=== PATIENT | male | born 1935 | race Caucasian/White ===

== ENCOUNTER 2017-12-20 13:47 | Inpatient (IN) | payer OTHER, BC, MEDICARE ==
[~2017-12-20] VITALS: Ht 167.6 cm; Wt 65.9 kg
--- NOTE | 2017-12-20 14:20 | ED MVC/FALL/TRAUMA COMPLAINT ---
History of Present Illness General Chief Complaint: General Adult Stated Complaint: ?STROKE Source: patient, DAUGHTER Exam Limitations: poor historian Vital Signs & Intake/Output Vital Signs & Intake/Output Vital Signs Date Time Temp Pulse Resp B/P B/P Pulse O2 O2 Flow FiO2 Mean Ox Delivery Rate 12/20 1411 98.0 102 20 188/104 96 Room Air Allergies Coded Allergies: NO KNOWN ALLERGIES (02/08/13) Reconcile Medications Amlodipine Besylate 5 MG TABLET 1 TAB PO DAILY BP (Reported) Atorvastatin Calcium 10 MG TABLET 1 TAB PO DAILY CHOLESTEROL (Reported) Tamsulosin HCl (Flomax) 0.4 MG CAP.ER.24H 1 CAP PO DAILY (Reported) Triage Nurses Notes Reviewed? yes HPI: Patient presents for evaluation of injury sustained status post fall on the possibility of a stroke. Patient was brought to the emergency department by paramedics who placed patient in a cervical collar. According to the patient he got up at about 8:00 this morning and noted he was having trouble walking. He states he fell repeatedly during the morning. He was found by one of his daughters this afternoon. The patient is complaining of left forearm pain secondary to an abrasion. Past History Travel History Traveled to [place] past 21 day No Medical History Any Pertinent Medical History? see below for history Cardiovascular: hypertension, hyperlipidemia Surgical History Surgical History: non-contributory Psychosocial History Who do you live with Spouse Services at Home None What is your primary language Haitian Tobacco Use: Never used ETOH Use: denies use Illicit Drug Use: denies illicit drug use Family History Hx Contributory? No Review of Systems Review of Systems Constitutional: Reports: no symptoms. Eyes: Reports: no symptoms. Ears, Nose, Throat, Mouth: Reports: no symptoms. Respiratory: Reports: no symptoms. Cardiovascular: Reports: no symptoms. Gastrointestinal/Abdominal: Reports: no symptoms. Genitourinary: Reports: no symptoms. Musculoskeletal: Reports: see HPI. Skin: Reports: no symptoms. Neurological/Psychological: Reports: no symptoms. All Other Systems: Reviewed and Negative Physical Exam Physical Exam General Appearance: SEE BELOW Core Measures ACS in differential dx? No CVA/TIA Diagnosis Yes NIH Stroke Scale (24 Hours) NIH Stroke Scale (24 Hours) Response Value Level of Consciousness alert 0 LOC Questions answers both correctly 0 LOC Commands obeys both correctly 0 Best Gaze partial gaze palsy 1 Visual Matt partial hemianopia 1 Facial Paresis normal 0 Motor Arm - Left no drift 0 Motor Arm - Right no drift 0 Motor Leg - Left no drift 0 Motor Leg - Right no drift 0 Limb Ataxia no ataxia 0 Sensory normal 0 Best Language no aphasia 0 Dysarthria mild/mod slurring words 1 Extinction and Inattention partial neglect 1 Total 4 Swallow Evaluation Pass Swallow eval date 12/20/17 Swallow eval time 1720 Sepsis Present: No Sepsis Focused Exam Completed? No Progress Differential Diagnosis: TIA, CVA, mass, bleed, dehydration, anemia, electrolyte abnormality, occult infection Plan of Care: Orders Procedure Date/time Status URINALYSIS 12/20 142 Complete TSH REFLEX 12/20 142 Complete TROPONIN LEVEL 12/20 142 Complete MAGNESIUM 12/20 1424 Complete CBC WITHOUT DIFFERENTIAL 12/20 1424 Complete BASIC METABOLIC PANEL 12/20 1424 Complete EKG 12/20 1424 Active Current Medications Sig/Alfredito Start time Last Medication Dose Stop Time Status Admin Aspirin 81 MG ONCE ONE 12/21 1999 UNVr (Aspirin) 12/20 2000 Guaifenesin 600 MG ONCE ONE 12/20 170 CAN (Mucinex) 12/20 1701 Laboratory Tests 12/20/17 1735: Urine Color YEL, Urine Clarity CLDY H, Urine pH 6.0, Ur Specific Jasper 1.020, Urine Protein TRACE H, Urine Ketones NEG, Urine Nitrite NEG, Urine Bilirubin NEG, Urine Urobilinogen 0.2, Ur Leukocyte Esterase LARGE H, Ur Microscopic SEDIMENT EXAMINED, Urine RBC 5-10 H, Urine WBC > 75 H, Urine Bacteria MANY H, Urine Hemoglobin LARGE H, Urine Glucose NEG 12/20/17 1430: Anion Gap 12, Estimated GFR 34 L, BUN/Creatinine Ratio 17.4, Glucose 93, Calcium 9.1, Magnesium 2.0, Troponin I < 0.01, TSH &T3 &Free T4 Intrp 3.690, CBC w Diff MAN DIFF ORDERED, RBC 5.68, MCV 78.6 L, MCH 25.5 L, MCHC 32.4 L, RDW 16.7 H, MPV 8.4, Gran % 86.8 H, Lymphocytes % 5.7 L, Monocytes % 7.2, Eosinophils % 0.1, Basophils % 0.2, Absolute Granulocytes 10.6 H, Absolute Lymphocytes 0.7 L, Absolute Monocytes 0.9 H, Absolute Eosinophils 0, Absolute Basophils 0, Platelet Estimate VERIFIED BY SMEAR, Hypochromic-Microcytic 1+, Anisocytosis 1+, Microcytic Cells 1+ Radiology Impression: PATIENT: JONATAN DAN PRESENT AGE: 82 PATIENT ACCOUNT NO: [id number] : 35 LOCATION: [facility] ([facility]) ORDERING PHYSICIAN: Benny Ledesma MD SERVICE DATE: 12/20/17-7048 EXAM TYPE : CAT - CT CERV SPINE WO IV CONTRAST EXAMINATION: CT CERVICAL SPINE WITHOUT CONTRAST CLINICAL INFORMATION: Change of mental status COMPARISON: None TECHNIQUE: Contiguous helical images of the cervical spine were obtained without IV contrast. Multiplanar reconstructions were performed. DLP: 312 mGy-cm FINDINGS: There is no convincing prevertebral soft tissue swelling. There are extensive and severe degenerative changes involving the cervical spine. There is diffuse sclerosis throughout the body of C2. The relationship between the lateral masses of C1 and the odontoid process of C2 are maintained. There is 1 mm of retrolisthesis at the C3-C4 level. There is relative preservation of the normal intervertebral disc space of C2-C3, C3-C4, and C4-C5. There is complete narrowing of the intervertebral disc space at C5-C6 and C6/C7 with vertebral body bony fusion suspected at these levels. There are prominent bridging anterior osteophytes as well. Smaller posterior osteophytes are noted from C5 through C7. There is extensive facet hypertrophy as well. This is present throughout the visualized cervical spine. No acute fracture is identified. There is no convincing acute subluxation. The thyroid gland appears within normal limits. The lung apices are clear.. IMPRESSION: 1. No acute fracture or significant subluxation involving the cervical spine. Severe degenerative changes from C5 through C7 including bony fusion. 2. Minimal retrolisthesis present at the C3-C4 level most likely relates to extensive degenerative changes noted more inferiorly within the cervical spine. However, if there is pain referrable to this level consider further evaluation with MRI to definitively exclude injury to the cervical spine. DICTATED BY: Callie Rice MD DATE/TIME DICTATED:12/20/171431 [employer] PLANT MANAGER:KERVIN DATE/TIME TRANSCRIBED:1431 CONFIDENTIAL, DO NOT COPY WITHOUT APPROPRIATE AUTHORIZATION. < Electronically signed in Other Vendor System> SIGNED BY: Callie Rice MD 1443, PATIENT: JONATAN DAN PRESENT AGE: 82 PATIENT ACCOUNT NO: [id number] : 35 LOCATION: [facility] ([facility]) ORDERING PHYSICIAN: Benny Ledesma MD SERVICE DATE: 12/20/17 EXAM TYPE: CAT - CT HEAD WO IV CONTRAST EXAMINATION: CT HEAD WITHOUT CONTRAST CLINICAL INFORMATION: Change in mental status COMPARISON: 02/08/2013 TECHNIQUE: Contiguous axial imaging was performed from the skull base to vertex without intravenous administration of contrast. DLP: 625 mGy-cm FINDINGS: There is no evidence of acute intracranial hemorrhage or territorial infarction. No abnormal mass effect or midline shift is seen. Gomes to white matter differentiation is well preserved. No extra-axial fluid collections are identified. The ventricles are mildly increased in size. There is extensive low-attenuation within the periventricular and subcortical white matter. This is increased compared 2013. Additional, there is a new hypodensity within the left basal ganglia measuring 6 mm consistent with a lacunar infarct. A similar finding is noted adjacent to the left lateral ventricle measuring 8 mm in size. There is a geographic hypoattenuation surrounding the latter finding. However, there is no effacement of the sulci. A tiny hypodensity is also noted within the left thalamus measuring 0.4 cm in size. In addition, there is a tiny hypodensity within the right frontal lobe anterior to the lateral ventricle. Additional tiny hypodensity measuring 0.6 cm in size is identified within the right occipital lobe. The osseous structures and soft tissues are normal. The mastoid air cells and visualized portions of the paranasal sinuses are well aerated. IMPRESSION: 1. No acute intracranial hemorrhage. 2. Multiple new (compared to 2012) scattered rounded subcentimeter areas of hypoattenuation. While a few of these findings are most likely consistent with lacunar infarcts, additional areas are less classic in distribution raising the possibility of possible underlying metastatic disease. Consider further evaluation with MRI to definitively characterize these findings. 3. Moderate to severe chronic small vessel ischemic change. DICTATED BY: Callie Rice MD DATE/TIME DICTATED:12/20/171447 [employer]ANT MANAGER:KERVIN DATE/TIME TRANSCRIBED:12/20/171447 CONFIDENTIAL, DO NOT COPY WITHOUT APPROPRIATE AUTHORIZATION. <Electronically signed in Other Vendor System> SIGNED BY: Callie Rice MD 12/20/17 5848, PATIENT: JONATAN DAN PRESENT AGE: 82 PATIENT ACCOUNT NO: [id number] : 35 LOCATION: [facility] ([facility]) ORDERING PHYSICIAN: Benny Ledesma MD SERVICE DATE: 12/20/171424 EXAM TYPE: RAD - XRY-HUMERUS, LEFT EXAMINATION: XR HUMERUS, LEFT CLINICAL INFORMATION: Pain status-post fall. COMPARISON: Left elbow radiographs dated 08/2012. TECHNIQUE: AP and lateral views of the left humerus. FINDINGS: Bony alignment and mineralization are normal. There is marked osteophytic change of the left shoulder, with narrowed rotator cuff interval. No acute fracture or dislocation is seen. There is a chronic soft tissue calcification seen in the anterior lower upper arm, unchanged from 02/08/2013. No new radiopaque foreign body is seen. IMPRESSION: 1. No acute fracture or dislocation is seen. 2. There is marked osteophytic change of the left shoulder, with findings suggesting rotator cuff impingement and tendinopathy. DICTATED BY: Lobo Hong MD DATE/ TIME DICTATED:12/20/171539 [employer]ANT MANAGER:KERVIN DATE/TIME TRANSCRIBED: 12/20/171539 CONFIDENTIAL, DO NOT COPY WITHOUT APPROPRIATE AUTHORIZATION. < Electronically signed in Other Vendor System> SIGNED BY: Lobo Hong MD 12/20/17 1546, PATIENT: JONATAN DAN PRESENT AGE: 82 PATIENT ACCOUNT NO: [id number] : 35 LOCATION: [facility] ([facility]) ORDERING PHYSICIAN: Benny Ledesma MD SERVICE DATE: 12/20/17 EXAM TYPE: RAD - XRY-FOREARM, LEFT EXAMINATION: XR FOREARM, LEFT CLINICAL INFORMATION: Pain status-post fall. COMPARISON: Left elbow radiographs dated 02/08/2013. TECHNIQUE: AP and lateral views of the left forearm were obtained. FINDINGS: Bony alignment and mineralization are normal. No fracture, dislocation or joint effusion is seen. There is an enthesophyte is seen arising from the olecranon process. There is a soft tissue calcifications seen within the dorsal forearm, which appears to have been present on the frontal view of the left elbow dated 02/08/2013. No new radiopaque foreign body is seen. IMPRESSION: No acute fracture, dislocation or joint effusion is seen DICTATED BY: Lobo Hong MD DATE/TIME DICTATED:12/20/171536 [employer]ANT MANAGER:KERVIN DATE/TIME TRANSCRIBED:12/20/171536 CONFIDENTIAL, DO NOT COPY WITHOUT APPROPRIATE AUTHORIZATION. <Electronically signed in Other Vendor System> SIGNED BY: Lobo Hong MD 12/20/17 1544 Departure Departure Disposition: STILL A PATIENT Condition: Stable Clinical Impression Primary Impression: CVA (cerebral vascular accident) Qualifiers: CVA mechanism: unspecified Qualified Code: I63.9 - Cerebral infarction, unspecified Secondary Impressions: UTI (urinary tract infection) Qualifiers: Urinary tract infection type: site unspecified Hematuria presence: without hematuria Qualified Code: N39.0 - Urinary tract infection, site not specified Referrals: Mckenzie YBARRA,Mark Elaine (PCP/Family) Departure Forms: Customer Survey General Discharge Information Admission Note Spoke With: Bernabe Zhou MD Documentation of Exam: Documentation of any treatments & extenuating circumstances including Concerns Regarding Discharge (functional status, medication knowledge or non-compliance, living conditions, etc.) that warrant an admission rather than observation: Patient has experienced a number of falls this morning likely secondary to a left parietal lacunar infarct noted on CAT scan. The patient is a very poor candidate for outpatient management given his frequent falling and is CVA resulting in left-sided weakness. He would be at great risk of falling with subsequent injury and would likely return in worse clinical condition. I feel he now requires hospitalization for initiation of antiplatelet therapy, follow- up MRI scan, neurology consultation and physical therapy evaluation. In addition, echocardiogram should be considered to rule out cardioembolic disease. Given his advanced age and medical comorbidities I suspect his treatment and recovery will be prolonged, requiring short-term rehabilitation. He will require a multiple day hospitalization.
--- NOTE | 2017-12-20 14:43 | CT SCAN REPORT ---
EXAMINATION: CT CERVICAL SPINE WITHOUT CONTRAST CLINICAL INFORMATION: Change of mental status COMPARISON: None TECHNIQUE: Contiguous helical images of the cervical spine were obtained without IV contrast. Multiplanar reconstructions were performed. DLP: 312 mGy-cm FINDINGS: There is no convincing prevertebral soft tissue swelling. There are extensive and severe degenerative changes involving the cervical spine. There is diffuse sclerosis throughout the body of C2. The relationship between the lateral masses of C1 and the odontoid process of C2 are maintained. There is 1 mm of retrolisthesis at the C3-C4 level. There is relative preservation of the normal intervertebral disc space of C2-C3, C3-C4, and C4-C5. There is complete narrowing of the intervertebral disc space at C5-C6 and C6/C7 with vertebral body bony fusion suspected at these levels. There are prominent bridging anterior osteophytes as well. Smaller posterior osteophytes are noted from C5 through C7. There is extensive facet hypertrophy as well. This is present throughout the visualized cervical spine. No acute fracture is identified. There is no convincing acute subluxation. The thyroid gland appears within normal limits. The lung apices are clear.. IMPRESSION: 1. No acute fracture or significant subluxation involving the cervical spine. Severe degenerative changes from C5 through C7 including bony fusion. 2. Minimal retrolisthesis present at the C3-C4 level most likely relates to extensive degenerative changes noted more inferiorly within the cervical spine. However, if there is pain referrable to this level consider further evaluation with MRI to definitively exclude injury to the cervical spine.
--- NOTE | 2017-12-20 15:01 | CT SCAN REPORT ---
EXAMINATION: CT HEAD WITHOUT CONTRAST CLINICAL INFORMATION: Change in mental status COMPARISON: 02/08/2013 TECHNIQUE: Contiguous axial imaging was performed from the skull base to vertex without intravenous administration of contrast. DLP: 625 mGy-cm FINDINGS: There is no evidence of acute intracranial hemorrhage or territorial infarction. No abnormal mass effect or midline shift is seen. Gomes to white matter differentiation is well preserved. No extra-axial fluid collections are identified. The ventricles are mildly increased in size. There is extensive low-attenuation within the periventricular and subcortical white matter. This is increased compared 2013. Additional, there is a new hypodensity within the left basal ganglia measuring 6 mm consistent with a lacunar infarct. A similar finding is noted adjacent to the left lateral ventricle measuring 8 mm in size. There is a geographic hypoattenuation surrounding the latter finding. However, there is no effacement of the sulci. A tiny hypodensity is also noted within the left thalamus measuring 0.4 cm in size. In addition, there is a tiny hypodensity within the right frontal lobe anterior to the lateral ventricle. Additional tiny hypodensity measuring 0.6 cm in size is identified within the right occipital lobe. The osseous structures and soft tissues are normal. The mastoid air cells and visualized portions of the paranasal sinuses are well aerated. IMPRESSION: 1. No acute intracranial hemorrhage. 2. Multiple new (compared to 2013) scattered rounded subcentimeter areas of hypoattenuation. While a few of these findings are most likely consistent with lacunar infarcts, additional areas are less classic in distribution raising the possibility of possible underlying metastatic disease. Consider further evaluation with MRI to definitively characterize these findings. 3. Moderate to severe chronic small vessel ischemic change.
[2017-12-20 15:03] LABS: ABSOLUTE BASOPHIL COUNT 0 /CUMM (0.0-0.2); ABSOLUTE EOSINOPHIL COUNT 0 /CUMM (0.0-0.7); ABSOLUTE GRANULOCYTE CT 10.6 /CUMM (1.4-6.5); ABSOLUTE LYMPH COUNT 0.7 /CUMM (1.2-3.4); ABSOLUTE MONOCYTE COUNT 0.9 /CUMM (0.10-0.60); BASOPHIL % 0.2 % (0.0-2.0); EOSINOPHIL % 0.1 % (0-5); GRANULOCYTE % 86.8 % (42.2-75.2); HEMATOCRIT 44.6 % (42-52); MEAN CORPUSCULAR HGB 25.5 PG (27.0-31.0); MEAN CORPUSCULAR HGB CONC 32.4 G/DL (33.0-37.0); MEAN CORPUSCULAR VOLUME 78.6 FL (80.0-94.0); MEAN PLATELET VOLUME 8.4 FL (7.4-10.4); PLATELET COUNT 242 /CUMM (130-400); RBC DISTRIBUTION WIDTH 16.7 % (11.5-14.5); RED BLOOD CELL CT 5.68 /CUMM (4.70-6.10); WHITE BLOOD CELL COUNT 12.2 /CUMM (4.8-10.8)
[2017-12-20] MEDS ORDERED: ATORVASTATIN CA10 M1 PO (15:32)
[2017-12-20] MEDS ORDERED: FLOMAX0.4 M1 PO (15:32)
[2017-12-20] MEDS ORDERED: AMLODIPINE BESYL5 M1 PO (15:33)
--- NOTE | 2017-12-20 15:44 | RADIOLOGY REPORT ---
EXAMINATION: XR FOREARM, LEFT CLINICAL INFORMATION: Pain status-post fall. COMPARISON: Left elbow radiographs dated 02/08/2013. TECHNIQUE: AP and lateral views of the left forearm were obtained. FINDINGS: Bony alignment and mineralization are normal. No fracture, dislocation or joint effusion is seen. There is an enthesophyte is seen arising from the olecranon process. There is a soft tissue calcifications seen within the dorsal forearm, which appears to have been present on the frontal view of the left elbow dated 02/08/2013. No new radiopaque foreign body is seen. IMPRESSION: No acute fracture, dislocation or joint effusion is seen
--- NOTE | 2017-12-20 15:46 | RADIOLOGY REPORT ---
EXAMINATION: XR HUMERUS, LEFT CLINICAL INFORMATION: Pain status-post fall. COMPARISON: Left elbow radiographs dated 02/08/2013. TECHNIQUE: AP and lateral views of the left humerus. FINDINGS: Bony alignment and mineralization are normal. There is marked osteophytic change of the left shoulder, with narrowed rotator cuff interval. No acute fracture or dislocation is seen. There is a chronic soft tissue calcification seen in the anterior lower upper arm, unchanged from 02/08/2013. No new radiopaque foreign body is seen. IMPRESSION: 1. No acute fracture or dislocation is seen. 2. There is marked osteophytic change of the left shoulder, with findings suggesting rotator cuff impingement and tendinopathy.
--- NOTE | 2017-12-20 19:19 | CT SCAN REPORT ---
EXAMINATION: CT ANGIOGRAM NECK WITH CONTRAST CT ANGIOGRAM BRAIN WITH CONTRAST CLINICAL INFORMATION: Left weakness and right-sided gaze. COMPARISON: Head CT performed earlier the same day. TECHNIQUE: Test bolus sequences followed by intravenous administration 95 mL of Optiray 320. Helical imaging was performed in the axial plane from the thoracic inlet to the skull vertex. Delayed postcontrast imaging of the head was also performed. The data was processed at the cardiac cath lab radiology technologist workstation for generation of MIP sequences. Angled MIPs and volume rendered reformatted images were also generated at an offline 3D workstation. Stenoses are assessed in accordance with NASCET criteria unless otherwise indicated. 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 No intracranial hemorrhage. No hydrocephalus, extra-axial surface collection, midline shift, or other herniation pattern. Basilar cisterns are preserved. CERVICAL SOFT TISSUES AND LUNG APICES: Unremarkable. NECK CTA: There is a 3 great vessel branch configuration off of the aortic arch which exhibits atherosclerotic calcification in soft atherosclerotic plaque. Mild narrowing of the left subclavian artery origin. Atherosclerotic disease results in severe stenosis of the right vertebral artery origin. Osteophytes result in a severe stenosis of the proximal V2 segment of the right vertebral artery at the C7 level and a moderate stenosis at the C6 level atherosclerotic plaque and osteophytes result in a moderate to severe stenosis of the left vertebral artery at the C3-C4 level. Remainder the left vertebral artery is widely patent. The right common carotid artery, the right carotid bifurcation, and the right cervical internal carotid artery are widely patent. Lipid rich atherosclerotic plaque results in a severe stenosis of the left external carotid artery origin. Left internal carotid artery origin is widely patent. BRAIN CTA: Nondiagnostic CTA of the head secondary to significant motion artifact. I cannot exclude significant arterial stenoses nor acute arterial occlusions within the head given the degree of artifact. There is the suggestion of a severe stenosis involving the left cavernous ICA segment. Nondiagnostic assessment for aneurysms given the degree of artifact. IMPRESSION: - There is background moderate chronic microangiopathy and there are lacunar infarcts of indeterminate age within the deep harris nuclei bilaterally and possibly the periphery of the right parietal lobe (image 117 of series 4) for which a MRI of the brain would be helpful in excluding any acute infarcts given the history. - Nondiagnostic CTA of the head secondary to significant motion artifact. I cannot exclude significant arterial stenoses nor acute arterial occlusions within the head given the degree of artifact. There is the suggestion of a severe stenosis involving the left cavernous ICA segment. Nondiagnostic assessment for aneurysms given the degree of artifact. - There is a severe stenosis of the right vertebral artery origin and there are moderate to severe segmental stenoses of the proximal V2 segment of the right vertebral artery. Moderate to severe stenosis of the left vertebral artery at the C3-C4 level. - There is no significant stenosis involving the internal carotid arteries on either side. There is a fairly severe stenosis involving the left external carotid artery origin secondary to lipid rich atherosclerotic plaque. The findings and limitations of this examination were discussed with Dr. Benny Ledesma at 7:09 PM on 12/20/2017.
--- NOTE | 2017-12-20 20:10 | History & Physical ---
ElkinYanna 12/20/17 2009: General Information and HPI History of Present Illness: Nelson Silver is a 82 YO male with a PMHx. of HTN, HLD, BPH s/p TURP 2007 who presents to the ED with a chief complaint of "falls." Patient is accompanied by his two daughters who state that he told them he felt dizzy around 8 am this morning and felt unbalanced. Patient was also noted to have fallen 2 times in the kitchen and once in the living room. Patient is also noted to have been neglecting to take his medications. Patient was last noted to be in his normal physical state approximately one week prior. Patient states he had a couple bouts of emesis today. Patient complains of left arm pain likely secondary to his repeated falls from today. Patient denies any chest pain, lightheadedness, dysuria, abdominal pain, and fevers. Patient is known to be very active, however he follows an unhealthy diet, according to his daughters. Patient is a former smoker with a 30 pack year history and quit smoking more than 30 years ago. Patient is retired from [employer] and lives with his . Patient's PCP is Dr. Rincon. Patient's urologist is Dr. Mederos. Past History Travel History Traveled to [place] past 21 day No Medical History Cardiovascular: hypertension, hyperlipidemia Surgical History Surgical History: non-contributory Past Family/Social History Psychosocial History Services at Home: None Smoking Status: Former Smoker ETOH Use: denies use Illicit Drug Use: denies illicit drug use Review of Systems Review of Systems Constitutional: Denies: diaphoresis, fever. EENTM: Denies: visual changes. Cardiovascular: Denies: chest pain, edema, orthopena, palpitations. Respiratory: Denies: cough, short of breath. GI: Reports: vomiting. Denies: abdominal pain, constipation. Genitourinary: Reports: hematuria. Denies: dysuria. Musculoskeletal: Reports: joint pain. Skin: Reports: change in skin color (brusing). Neurological/Psychological: Reports: ataxia, weakness. Exam & Diagnostic Data Last 24 Hrs of Vital Signs/I&O Vital Signs Date Time Temp Pulse Resp B/P B/P Pulse O2 O2 Flow FiO2 Mean Ox Delivery Rate 12/20 2325 97.4 92 18 168/90 94 Room Air 12/20 2033 97.4 113 20 180/86 96 Room Air 12/20 1733 97.7 104 22 178/79 96 Room Air 12/20 1411 98.0 102 20 188/104 96 Room Air Intake & Output 12/20 1600 12/20 0800 12/20 0000 Intake Total Output Total Balance Patient 162 lb Weight Weight Reported by Patient Measurement Method Physical Exam General Appearance Alert (Slightly confused), Moderate Distress Skin No Rashes HEENT Atraumatic, PERRLA Neck Supple, No JVD Lymphatic Cervical nl Cardiovascular Regular Rate, Normal S1, Normal S2 Lungs Clear to Auscultation, Normal Air Movement Abdomen Soft, No Tenderness Neurological Normal Gait (unable to assess gait), Strength at 5/5 X4 Ext (4/5 strength left UE), Normal Tone, Left side partial neglect Extremities Normal Pulses Assessment/Plan Assessment: HEAD CT: 1. No acute intracranial hemorrhage 2. Multiple new (compared to 2013) scattered rounded subcentimeter areas of hypoattenuation. While a few of these findings are most likely consistent with lacunar infarcts, additional areas are less classic in distribution raising the possibility of possible underlying metastatic disease. Consider further evaluation with MRI to definitively characterize these findings. 3. Moderate to severe chronic small vessel ischemic change. Pertinent Labs: WBC 12.2 ; Absolute Granulocytes 10.6 H BUN 33; Cr 1.9 UA: Ur Leukocyte Esterase LARGE H, Urine RBC 5-10 H, Urine WBC > 75 H, Urine Bacteria MANY H Urine Hemoglobin LARGE H Etiology in this case with a history of recent falls and fluctuating levels of spatial awareness is likely due to a cerebrovascular accident. Neurologic exam is limited though exhibits left-sided spatial neglect with altered levels of alertness, likely secondary to an UTI. Patient is outside the time window for tPa administration, however permissive hypertension protocol will be followed accordingly. Secondary stroke prevention will be started with anti-platelet therapy (Aspirin) and a high dose statin. If needed, urgent carotid revascularizatio if > 70% ICA stenosis on the side of the stroke. Aspiration precautions with NPO until evaluated by speech pathology and early mobilization with PT (within 24-48 hours). NIHSS Score < 4. Problem List: 1. CVA 2. Acute Encephalopathy, likely due to UTI 3. h/o HTN, HLD 4. h/o BPH s/p TURP Plan: * CVA - Admit to telemetry for monitoring and assessment of vitals - Follow-up MRI without gadolinium due to greater sensitivity for acute ischemic infarcts (<12 hours) and posterior fossa strokes - Lipid panel and BEP 6 AM - Serial neuro exams to r/o progressive neurologic deficit from any head injury - Seconday prevention: ASA 81 mg, Atorvastatin 80 mg - Heparin SC - Supplemental oxygen to maintain blood oxygen saturation > 92% - NIHSS Score < 4; likely better clinical outcome and return to functional independence - Avoid anticoagulation due to risk of hemorrhagic conversion - Swallowing assessment -> NPO if symptoms of coughing or a wet voice after swallowing a small cup of water - Risk of aspiration pneumonia -> prophylactic ABx. Ceftriaxone to cover mixed aerobic and anaerobic oral thaddeus - DVT PPx. * Acute Encephalopathy, secondary to UTI - Acute, fluctuating change in mental status and altered level of awareness - CBC follow up to reassess 6 AM FC As Ranked By This Provider Problem List: 1. CVA (cerebral vascular accident) Qualifiers CVA mechanism: unspecified Qualified Code: I63.9 - Cerebral infarction, unspecified 2. UTI (urinary tract infection) Qualifiers Urinary tract infection type: site unspecified Hematuria presence: without hematuria Qualified Code: N39.0 - Urinary tract infection, site not specified Core Measures/Misc (02/22) Acute Coronary Syndrome ACS Diagnosis: No Congestive Heart Failure Congestive Heart Failure Diagnosis No Cerebrovascular Accident CVA/TIA Diagnosis: Yes NIH Stroke Scale: Total 1 Date Last Known Well: 12/13/17 Time Last Known Well: 0800 Symptom Start Date: 12/19/17 Symptom Start Time: 0800 tPA Risk/Benefit discussion Presentation outside of 4.5 hours since symptom onset, therefore tPA outside of window of administration. tPA risk greater than perceived benefit as a result. tPA given? No Reason tPA not ordered Medical Contraindication Swallow Evaluation Fail (Taking PO meds with applesauce) Current/Past Hx AFib/AFlutter No No Anticoagulant d/t Medical Contraindication Comment Aspirin and Atorvastatin rx. VTE (View Protocol) VTE Risk Factors Acute Medical Illness No Mechanical VTE Prophylaxis d/t N/A MechProphylax Ordered No VTE Pharm Prophylaxis d/t NA PharmProphylax ordered Sepsis (View protocol) Sepsis Present: No If YES complete Sepsis Event Note If YES complete Sepsis Event Note Patricia Barger 12/20/17 2302: Core Measures/Misc (02/22) Sepsis (View protocol) If YES complete Sepsis Event Note If YES complete Sepsis Event Note Resident Review Statement Resident Statement: examined this patient, discussed with administrative intern, agreed with administrative intern Other Findings: Mr Silver is a 82 year old man w/ a PMHx of hypertension, hyperlipidemia, BPH (history unclear about treatment), CKD, CAD s/p stent(dates, and type of stent unknown) came to the hospital with a chief concern of multiple falls that started in the a.m around 8 AM on the day of presentation. Reported to have difficulty walking attributed to 2 imbalance issues, and fell without any injury to the head. He lives with his , whom he takes care of and is checked by his doctors regularly. He did not have any chest pain, palpitations. When daughter called him during the day, he reported to have had an episode of dizziness prior to the fall. Also reported to have exertional dyspnea. Days prior to this episode. Reported to have been noncompliant to his medications. Last checked by his daughter physically was approximately 1 week ago. Did not report any neurological weakness, tingling numbness sensation, loss of bladder bowel function. No fever, no chills, no clear h/o of dysurea or urinary difficulty, or hematurea. No nausea or vomiting. At the time of admission-temperature 98.0, pulse rate 102, respiration 20, blood pressure 188/104, pulse ox 96% on room air. General Exam: AAOx3, No acute distress, Skin: No rashes, no breakdown;HEENT: PERRLA, EOMI;Neck: Supple, No JVD; No cervical lymphadenopathy;CVS: Reg Rate, Normal S1,S2, No MGR;Resp: Normal air entry, no ronchi/rales;Abdomen: Soft, No tenderness, Normal Bowel Sounds; Extremities: No cyanosis, no pedal edema, multiple brises on the lower extremities. Mental status: alert, oriented to person, place, time. Memory could not be checked; no language abnormalities were demonstrated, affect was normal. He was trying to get out of the bed, when we were examining him. Cranial nerves: Sensation to face, intact. Facial strength was intact bilaterally. Hearing was intact, normal movement of soft palate, shoulder shrug was intact bilaterally, there was no tongue deviation with protrusion PERRL, funduscopic exam was not done, extraocular muscles could not be checked, since he was not following commands well. Motor exam: Muscle tone was normal,no drift, muscle bulk was normal, motor strength was normal, motor strength of upper extremities and lower extremities was normal, no fasciculations, no involuntary movements seen. No tremor was noted. He preferred right hand over left upper extremity, when we were examining him.Sensory exam: No sensory abnormalities, Romberg sign could not be checked, normal sensation.Reflexes: Deep tendon reflexes normal.Coordination: Could not be checked, but cerebellar function was intact.Gait and stance: Could not be checked. Left sided neglect noticed, unclear if he prefers right side given his recent fall on the left side. Pertinent lab findings: WBC 12.2(86% granulocytes) hemoglobin 14.5, MCV 78.6 (microcytosis), platelet count 242 Sodium 142, potassium 4.9, chloride 107, bicarbonate 23 BUN 33, creatinine 1.9( baseline 1.7 ) Glucose 93 Trop 0.01 TSH 3.69 UA had pyurea, ULE + CT cervical spine: 1. No acute fracture or significant subluxation involving the cervical spine. Severe degenerative changes from C5 through C7 including bony fusion.2. Minimal retrolisthesis present at the C3-C4 level most likely relates toextensive degenerative changes noted more inferiorly within the cervical spine. CT head: 1. No acute intracranial hemorrhage. 2. Multiple new (compared to 2013) scattered rounded subcentimeter areas of hypoattenuation. While a few of these findings are most likely consistent with lacunar infarcts, additional areas are less classic in distribution raising the possibility of possible underlying metastatic disease. there is a new hypodensity within the left basal ganglia measuring 6 mm consistent with a lacunar infarct. A similar finding is noted adjacent to the left lateral ventricle measuring 8 mm in size. There is a geographic hypoattenuation surrounding the latter finding. However, there is no effacement of the sulci. A tiny hypodensity is also noted within the left thalamus measuring 0.4 cm in size. In addition, there is a tiny hypodensity within the right frontal lobe anterior to the lateral ventricle. Additional tiny hypodensity measuring 0.6 cm in size is identified within the right occipital lobe. The osseous structures and soft tissues are normal. The mastoid air cells and visualized portions of the paranasal sinuses are well aerated. Moderate to severe chronic small vessel ischemic change. X ray fore arm: No acute fracture, dislocation or joint effusion is seen X-ray humerus left: 1. No acute fracture or dislocation is seen. 2. There is marked osteophytic change of the left shoulder, with findings suggesting rotator cuff impingement and tendinopathy. CT head and neck angiogram: Nondiagnostic CTA of the head secondary to significant motion artifact. cannot exclude significant arterial stenoses nor acute arterial occlusions within the head given the degree of artifact. There is the suggestion of a severe stenosis involving the left cavernous ICA segment. Nondiagnostic assessment for aneurysms given the degree of artifact. There is background moderate chronic microangiopathy and there are lacunar infarcts of indeterminate age within the deep harris nuclei bilaterally and possibly the periphery of the right parietal lobe. There is a severe stenosis of the right vertebral artery origin and there are moderate to severe segmental stenoses of the proximal V2 segment of the right vertebral artery. Moderate to severe stenosis of the left vertebral artery at the C3-C4 level. There is no significant stenosis involving the internal carotid arteries on either side. There is a fairly severe stenosis involving the left external carotid artery origin secondary to lipid rich atherosclerotic plaque. 1. R/o Ischemic CVA, likely multiple lacunar infarcts. 2. UTI 3. h/o BPH 4. 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 h/o HTN 6. Sepsis Admit the pt to telemetry given his recent neurological changes. Bedside swallow eval passed w/ apple sauce only. Etiology in his case is likely multifactorial, and infectious cause seems to be causing these symptoms which should be aggressively treated. Given his radiological findings s/o of CVA this should be ruled out with further tests such as MRI in the am. Discussed the risks vs benefits of tPA given his presentation which was outside recommended window from the time of clinical presentation. Complete neurological exam coulnt be done since he wasnt cooperative. He has a h/o BPH, and has been on tamsulosin which could be contributing to his symptoms. He continues to have large blood clots when he underwent straight catherization, and had residual volume of 300ml or so, after he underwent straight cath and would benefit from a jones cath ( althought less than ideal in a situation w/ infection), but would need to irrigate if needed. He continued to be slighlty delirious,likely from infection, or pain which should be addressed. He seems to be doing well with apple sauce, and unsure at this time if he developed any dysphagia or his volunatary inability to follow commands to swallow regular thin liquids. All meds to be administered w/ apple sauce only at this time until seen by swallow evaluation. Plan: 1. Neurochecks q4 2. ASA, high intensity statin. 3. Check lipid panel 4. Permissive htn 5. continue abx 6. 2D Echo 7. Continue ceftriaxone, fluids. Check urine culture, blood cultures, trend lactate. 4. MRI in the am 9. US kidney to r/o any obstruction 10. Urology consult to evaluate hematurea. Hold heparin and ASA if he continues to have hematuria. 11. Neurology consult 12. Trend EKGs and troponins. Cardiology consult. 13. Permissive htn 14. Jones catheter to relieve obstruction, given contiued presence of urine after staight cath and presence of blood clots. If there is any resistance, or have trouble placing a jones, would consult urology. The nursing staff was successful to place a 14 fr jones cath. Plan was to start w/ 16 Fr catheter. Full code. PT/OT ordered Swallow eval ordered Hold anti-hypertensives Winnie YBARRAJoseph 12/21/17 0127: General Information and HPI Statement: I have seen and personally examined NELSON SILVER and documented this H&P. The patient is a 82 year old M who presented with a patient stated chief complaint of [multiple falls]. Source of Information: patient, family Allergies/Medications Allergies: Coded Allergies: NO KNOWN ALLERGIES (02/08/13) Home Med list Amlodipine Besylate 5 MG TABLET 1 TAB PO DAILY BP (Reported) Atorvastatin Calcium 10 MG TABLET 1 TAB PO DAILY CHOLESTEROL (Reported) Tamsulosin HCl (Flomax) 0.4 MG CAP.ER.24H 1 CAP PO DAILY (Reported) Past History Surgical History Surgical History: non-contributory Past Family/Social History Psychosocial History Smoking Status: Former Smoker ETOH Use: denies use Illicit Drug Use: denies illicit drug use Employment History Employment Retired Review of Systems Review of Systems Constitutional: Reports: see HPI. Exam & Diagnostic Data Last 24 Hrs of Vital Signs/I&O Vital Signs Date Time Temp Pulse Resp B/P B/P Pulse O2 O2 Flow FiO2 Mean Ox Delivery Rate 12/20 2326 97.4 92 18 168/90 94 Room Air 12/20 2034 97.4 113 20 180/86 96 Room Air 12/20 1733 97.7 104 22 178/79 96 Room Air 12/20 1411 98.0 102 20 188/104 96 Room Air Intake & Output 12/21 0800 16 0000 12/20 1600 Intake Total 1000 Output Total 1300 Balance -300 Intake, IV 1000 Output, Urine 1300 Patient 223 lb 162 lb Weight Weight Bed scale Reported by Patient Measurement Method Physical Exam General Appearance Alert, Moderate Distress Skin No Rashes HEENT Atraumatic, PERRLA, EOMI Neck Supple, No JVD Lymphatic Axillary nl, Cervical nl Cardiovascular Regular Rate, Normal S1, Normal S2 Lungs Clear to Auscultation, Normal Air Movement Abdomen Normal Bowel Sounds, Soft, No Tenderness, No Hepatospenomegaly, No Masses Neurological Normal Gait Extremities Normal Pulses Core Measures/Misc (02/22) Sepsis (View protocol) If YES complete Sepsis Event Note If YES complete Sepsis Event Note Attending MD Review Statement Attending Statement Attending MD Statement: examined this patient, discuss w/resident/PA/SPECIALTY MOLDER, agreed w/resident/PA/SPECIALTY MOLDER, reviewed EMR data (avail), reviewed images, amended to note Attending Assessment/Plan: This patient is a 82 year old white male with a significant past medical history for hypertension, hyperlipidemia, BPH (history unclear about treatment), CKD, CAD s/p stent (dates, and type of stent unknown) came to the hospital with a chief concern of multiple falls that started in the a.m around 8 AM on the day of presentation. Reported to have difficulty walking attributed to 2 imbalance issues, and fell without any injury to the head. He lives with his . When his daughter called him during the day, he reported to have had an episode of dizziness prior to the fall. Also reported to have exertional dyspnea. Days prior to this episode. Reported to have been noncompliant to his medications. Last checked by his daughter physically was approximately 1 week ago. His WBC is 12.2(86% granulocytes), BUN 33, creatinine 1.9( baseline 1.7 ), Trop 0.01. TSH 3.69 and UA had pyurea, ULE +. His CT cervical spine: Minimal retrolisthesis present at the C3-C4 level most likely relates to extensive degenerative changes noted more inferiorly within the cervical spine. CT head: Multiple new ( compared to 2013) scattered rounded subcentimeter areas of hypoattenuation. While a few of these findings are most likely consistent with lacunar infarcts, additional areas are less classic in distribution raising the possibility of possible underlying metastatic disease. There is a new hypodensity within the left basal ganglia measuring 6 mm consistent with a lacunar infarct. A similar finding is noted adjacent to the left lateral ventricle measuring 8 mm in size. There is a geographic hypoattenuation surrounding the latter finding. However, there is no effacement of the sulci. A tiny hypodensity is also noted within the left thalamus measuring 0.4 cm in size. In addition, there is a tiny hypodensity within the right frontal lobe anterior to the lateral ventricle. Additional tiny hypodensity measuring 0.6 cm in size is identified within the right occipital lobe. The osseous structures and soft tissues are normal. The mastoid air cells and visualized portions of the paranasal sinuses are well aerated. CT head and neck angiogram: Nondiagnostic CTA of the head secondary to significant motion artifact. The patient has an Ischemic CVA, likely multiple lacunar infarcts an UTI.
[2017-12-20 23:26] VITALS: BP 168/90
[2017-12-21 06:08] VITALS: BP 180/60
[2017-12-21 08:35] LABS: ABSOLUTE BASOPHIL COUNT 0 /CUMM (0.0-0.2); ABSOLUTE EOSINOPHIL COUNT 0 /CUMM (0.0-0.7); ABSOLUTE GRANULOCYTE CT 7.8 /CUMM (1.4-6.5); ABSOLUTE LYMPH COUNT 0.8 /CUMM (1.2-3.4); ABSOLUTE MONOCYTE COUNT 0.6 /CUMM (0.10-0.60); BASOPHIL % 0.2 % (0.0-2.0); EOSINOPHIL % 0.3 % (0-5); HEMATOCRIT 42.2 % (42-52); MEAN CORPUSCULAR HGB 25.6 PG (27.0-31.0); MEAN CORPUSCULAR HGB CONC 32.4 G/DL (33.0-37.0); MEAN CORPUSCULAR VOLUME 78.9 FL (80.0-94.0); MEAN PLATELET VOLUME 8.8 FL (7.4-10.4); PLATELET COUNT 236 /CUMM (130-400); RBC DISTRIBUTION WIDTH 16.2 % (11.5-14.5); RED BLOOD CELL CT 5.35 /CUMM (4.70-6.10); WHITE BLOOD CELL COUNT 9.3 /CUMM (4.8-10.8)
--- NOTE | 2017-12-21 08:58 | Cons- Urology ---
General Information and HPI Consulting Request Date of Consult: 12/21/17 Requested By: Alejandra Villanueva MD Reason for Consult: Gross hematuria Source of Information: patient, old records Exam Limitations: no limitations History of Present Illness: This patient is known to me since 03/2017. At that time he was seen in the office for gross hematuria. Renal ultrasound showed normal kidneys, a large, lobular prostate, and a pvr of 530 cc, which was stable compared to 2 years before. Cystoscopy was delayed due to a UTI but was eventually done showing a moderately enlarged prostate and no evidence of bladder tumor. PVR was again elevated and there was 2+ bladder trabeculation. He states that he had some procedure on his prostate in the past by Dr Mederos. The patient is now admitted for possible CVA after sustaining multiple falls at home. In the ER he had an urge to void but couldn't. He was initially str cathed for 500 cc and later str cathed for 800 cc of bloody urine with some clots. A jones was left in place. U/A is suspicious for infection and culture is pending Allergies/Medications Allergies: Coded Allergies: NO KNOWN ALLERGIES (02/08/13) Home Med List: Amlodipine Besylate 5 MG TABLET 1 TAB PO DAILY BP (Reported) Atorvastatin Calcium 10 MG TABLET 1 TAB PO DAILY CHOLESTEROL (Reported) Tamsulosin HCl (Flomax) 0.4 MG CAP.ER.24H 1 CAP PO DAILY (Reported) Current Medications: Current Medications Sig/Alfredito Start time Last Medication Dose Route Stop Time Status Admin Acetaminophen 1,000 MG Q8P PRN 12/21 0515 12/21 N/A 1 UNIT IV 0538 Acetylcysteine 600 MG ONCE ONE 12/20 171 DC 12/20 PO 12/20 171 1722 Aspirin 0 .STK-MED ONE 12/20 2008 DC PO Aspirin 81 MG ONCE ONE 12/21 1999 DC 12/20 PO 12/20 Aspirin Buffered 81 MG DAILY 12/21 0900 AC 12/21 PO 0846 Atorvastatin Calcium 80 MG 1700 12/20 2245 AC 12/21 PO 0347 Ceftriaxone Sodium 1,000 MG 12/21 AC IV Ceftriaxone Sodium 0 .STK-MED ONE 12/20 2008 DC .ROUTE Ceftriaxone Sodium 1,000 MG ONCE ONE 12/21 1999 DC 12/20 IV 12/20 Guaifenesin 600 MG ONCE ONE 12/20 1700 CAN PO 12/20 1701 Heparin Sodium 5,000 UNIT Q8 12/20 2200 AC 12/21 (Porcine) SC 0509 Lidocaine 1 PAT Q24H 12/20 2130 AC 12/21 EXT 0347 Lorazepam 1 MG ONE ONE 12/21 0815 DC IV 12/21 0816 Melatonin 5 MG AT BEDTIME 12/21 0500 AC 12/21 PO 0509 Ondansetron HCl 4 MG Q8P PRN 12/20 2145 AC 12/21 IV 0413 Ondansetron HCl 4 MG ONCE ONE 12/20 2030 DC 12/20 IV 12/20 203 204 Ondansetron HCl 0 .STK-MED ONE 12/20 2021 DC .ROUTE Sodium Chloride 1,000 ML ONCE ONE 12/21 0415 AC 12/21 IV 12/21 1414 0509 Sodium Chloride 1,000 ML ONCE ONE 12/20 2115 DC 12/20 IV 12/21 0354 2315 Sodium Chloride 1,000 ML BOLUS ONE 12/20 1645 DC 12/20 IV 12/20 1844 1722 Tamsulosin HCl 0.4 MG DAILY 12/21 0900 AC 12/21 PO 0846 Past History Medical History Cardiovascular: hypertension, hyperlipidemia Surgical History Pertinent Surgical History: non-contributory Psychosocial History Services at Home: None Smoking Status: Former Smoker ETOH Use: denies use Illicit Drug Use: denies illicit drug use Employment History Employment: Retired Exam & Diagnostic Data Vital Signs and I&O Vital Signs Date Time Temp Pulse Resp B/P B/P Pulse O2 O2 Flow FiO2 Mean Ox Delivery Rate 12/21 0846 100 180/80 12/21 0608 97.7 124 20 180/60 96 Room Air 12/20 2326 97.4 92 18 168/90 94 Room Air 12/20 2034 97.4 113 20 180/86 96 Room Air 12/20 1733 97.7 104 22 178/79 96 Room Air 12/20 1411 98.0 102 20 188/104 96 Room Air Intake & Output 12/21 1600 12/21 0800 12/21 0000 12/20 1600 12/20 0800 12/20 0000 Intake Total 500 1000 Output Total 600 1300 Balance -100 -300 Intake, IV 500 1000 Output, Urine 600 1300 Patient 223 lb 162 lb Weight Weight Bed scale Reported by Patient Measurement Method Back: no CVA tenderness Abd: soft and nontender Genitalia: normal male. Jones in place draining light jonathan urine Laboratory Tests 12/21 12/20 12/20 12/20 0615 2255 2255 1735 Chemistry Sodium (137 - 145 mmol/L) 141 Potassium (3.5 - 5.1 mmol/L) 4.6 Chloride (98 - 107 mmol/L) 107 Carbon Dioxide (22 - 30 mmol/L) 22 Anion Gap (5 - 16) 12 BUN (9 - 20 mg/dL) 26 H Creatinine (0.7 - 1.2 mg/dL) 1.6 H Estimated GFR (>60 ml/min) 42 L BUN/Creatinine Ratio (7 - 25 %) 16.3 Lactic Acid (0.7 - 2.1 mmol/L) 1.4 Troponin I (<0.11 ng/ml) 0.04 0.04 Triglycerides (<150 mg/dL) 178 H Cholesterol (< 200 MG/DL) 223 H LDL Cholesterol, Calc (65 - 129 mg/dL) 150 H HDL Cholesterol (40 - 60 mg/dL) 38 L Cholesterol/HDL Ratio (0.00 - 4.88 %) 6 H Hematology CBC w Diff Pending WBC Pending RBC Pending Hgb Pending Hct Pending MCV Pending MCH Pending MCHC Pending RDW Pending Plt Count Pending MPV Pending Urines Urine Color (YEL,AMB,STR) YEL Urine Clarity (CLEAR) CLDY H Urine pH (5.0 - 8.0) 6.0 Ur Specific [place] (1.001 - 1.035) 1.020 Urine Protein (NEG,<30 MG/DL) TRACE H Urine Ketones (NEG) NEG Urine Nitrite (NEG) NEG Urine Bilirubin (NEG) NEG Urine Urobilinogen (0.1 - 1.0 EU/dl) 0.2 Ur Leukocyte Esterase (NEG) LARGE H Ur Microscopic SEDIMENT EXAMINED Urine RBC (0 - 5 /HPF) 5-10 H Urine WBC (0 - 2 /HPF) > 75 H Urine Bacteria (NEG/NONE) MANY H Urine Hemoglobin (NEG) LARGE H Urine Glucose (N MG/DL) NEG 12/20 1430 Chemistry Sodium (137 - 145 mmol/L) 142 Potassium (3.5 - 5.1 mmol/L) 4.9 Chloride (98 - 107 mmol/L) 107 Carbon Dioxide (22 - 30 mmol/L) 23 Anion Gap (5 - 16) 12 BUN (9 - 20 mg/dL) 33 H Creatinine (0.7 - 1.2 mg/dL) 1.9 H Estimated GFR (>60 ml/min) 34 L BUN/Creatinine Ratio (7 - 25 %) 17.4 Glucose (65 - 99 mg/dL) 93 Calcium (8.4 - 10.2 mg/dL) 9.1 Magnesium (1.6 - 2.3 mg/dL) 2.0 Troponin I (<0.11 ng/ml) < 0.01 TSH &T3 &Free T4 Intrp (0.27 - 4.20 uIU/mL) 3.690 Hematology CBC w Diff MAN DIFF ORDERED WBC (4.8 - 10.8 /CUMM) 12.2 H RBC (4.70 - 6.10 /CUMM) 5.68 Hgb (14.0 - 18.0 G/DL) 14.5 Hct (42 - 52 %) 44.6 MCV (80.0 - 94.0 FL) 78.6 L MCH (27.0 - 31.0 PG) 25.5 L MCHC (33.0 - 37.0 G/DL) 32.4 L RDW (11.5 - 14.5 %) 16.7 H Plt Count (130 - 400 /CUMM) 242 MPV (7.4 - 10.4 FL) 8.4 Gran % (42.2 - 75.2 %) 86.8 H Lymphocytes % (20.5 - 51.1 %) 5.7 L Monocytes % (1.7 - 9.3 %) 7.2 Eosinophils % (0 - 5 %) 0.1 Basophils % (0.0 - 2.0 %) 0.2 Absolute Granulocytes (1.4 - 6.5 /CUMM) 10.6 H Absolute Lymphocytes (1.2 - 3.4 /CUMM) 0.7 L Absolute Monocytes (0.10 - 0.60 /CUMM) 0.9 H Absolute Eosinophils (0.0 - 0.7 /CUMM) 0 Absolute Basophils (0.0 - 0.2 /CUMM) 0 Platelet Estimate (ADEQUATE) VERIFIED BY SMEAR Hypochromic-Microcytic 1+ Anisocytosis 1+ Microcytic Cells 1+ Assessment/Plan Assessment/Plan Imp: 1. Gross hematuria, likely UTI-related 2. UTI 3. Incomplete bladder emptying 4. BPH Plan: 1. Continue tamsulosin 2. Add finasteride 5 mg po qd 3. Empiric abx for UTI 4. Adjust abx when urine culture available 5. Would get renal ultrasound while in hospital, non urgent 6. Continue jones for now but will plan voiding trial in next couple of days if he does well 7. May need repeat cystoscopy at some point Consult Acknowledgment - Thank you for your consult request.
[2017-12-21 10:08] LABS: GRANULOCYTE % 83.5 % (42.2-75.2)
--- NOTE | 2017-12-21 12:44 | MRI REPORT ---
EXAMINATION: MR BRAIN WITHOUT CONTRAST CLINICAL INFORMATION: Assess for ischemic changes or possibly lacunar stroke. Assess for metastatic lesions. COMPARISON: CT scan of the head 12/20/2017. TECHNIQUE: MRI of the brain without contrast was obtained using routine sequences. The patient was confused and uncooperative. Limited evaluation was obtained. FINDINGS: Although the images are markedly degraded by patient motion artifact, there are are areas of restricted diffusion in the right frontoparietal regions in the distribution of the right middle cerebral artery. On the available images there is no evidence of hemorrhagic transformation. No mass effect or midline shift is seen. The ventricles and sulci are commensurately prominent consistent with [id number] diffuse volume loss. There are scattered areas of T2 hyperintensity in the periventricular and subcortical white matter consistent with chronic microvascular ischemic disease. Lacunar infarcts are demonstrated in the left gonzalez radiata and in the central mauricio posteriorly. No extra-axial fluid collections are seen. The cerebellum appears normal. No evidence of acute hemorrhage is seen. Grossly, the craniovertebral junction, marrow signal, and midline structures are normal. The major intracranial flow-voids at the level of the anvik of Silva appear maintained. The dural venous sinus flow-voids are maintained. The mastoid air cells are well-aerated. There is mucoperiosteal thickening in the bilateral ethmoid sinuses. IMPRESSION: 1. Imaging is markedly suboptimal due to confusion and poor cooperation from the patient. 2. There are areas of restricted diffusion in the right frontoparietal regions, consistent with acute infarcts. There is no evidence of hemorrhagic transformation. 3. There is diffuse volume loss and there are chronic microvascular ischemic changes. 4. There are no large masses, fluid collections or midline shift.
--- NOTE | 2017-12-21 13:23 | PN- Att Addend ---
Attending Addendum Attending Brief Note Pt seen and examimed at bedside . Stroke - currently on neuro exam has significant left arm weakness and tongue deviation and facial droop. Will await neuor consult and will get MRI brain as there was some concern on CT imaging for metastatic disease. Will get echo. CTA shows severe stenosis of Rt vertebral artery origin. Hematuria- will get Urology consult. JABIER - will fu on repeat cr for improvement. Cr at admission of 1.9, baseline is around 1.5. UTI- cont on ceftriaxone.
--- NOTE | 2017-12-21 13:42 | ULTRASOUND REPORT ---
EXAMINATION: US RETROPERITONEAL COMPLETE (RENAL) CLINICAL INFORMATION: Acute kidney insufficiency on chronic kidney disease. History of BPH. Hematuria. Rule out any obstruction. COMPARISON: Renal ultrasound dated 01/17/2017. TECHNIQUE: Real-time imaging of the kidneys and bladder. FINDINGS: RIGHT KIDNEY: 10.3 x 4.6 x 4.3 cm (SAG x AP x TRV). The kidney is normal in size, contour, and echogenicity. Renal cortical thickness is normal. No calculi or focal parenchymal lesions. No hydronephrosis. LEFT KIDNEY: 8.8 x 4.7 x 4.9 cm (SAG x AP x TRV). The kidney is normal in size, contour, and echogenicity. Renal cortical thickness is normal. No calculi or focal parenchymal lesions. No hydronephrosis. BLADDER: Decompressed by a Hill catheter and not adequately assessed. Bilateral ureteral jets are not demonstrated. PROSTATE GLAND: Seen on the in outline and found to be enlarged, measuring 5.5 x 4.4 x 5.2 cm (66 mL volume). IMPRESSION: 1. Normal kidneys. No evidence of hydronephrosis. 2. Bladder not adequately assessed due to decompression by Hill catheter. 3. Enlarged prostate gland noted.
--- NOTE | 2017-12-21 13:52 | PN- Housestaff ---
Subjective Follow-up For: cva Complaints: no complaints Tele-Events Since Last Visit: ST, 98-114, 0.08, 0.16 Subjective: Patient seen and examined at bedside this morning. He continues to have left sided arm weakness and left hemineglect. Patient denies any dizziness, headaches or chest pain at this time. As per nurse, he has been ripping out his IV lines and has a sitter at bedside. Will attempt patient to get MRI today. Otherwise patient alert to person place and time. Review of Systems Constitutional: Denies: see HPI. Objective Last 24 Hrs of Vital Signs/I&O Vital Signs Date Time Temp Pulse Resp B/P B/P Pulse O2 O2 Flow FiO2 Mean Ox Delivery Rate 12/21 1108 Room Air 12/21 0846 100 180/80 12/21 0800 96 Room Air 12/21 0608 97.7 124 20 180/60 96 Room Air 12/20 2326 97.4 92 18 168/90 94 Room Air 12/20 2034 97.4 113 20 180/86 96 Room Air 12/20 1733 97.7 104 22 178/79 96 Room Air 12/20 1411 98.0 102 20 188/104 96 Room Air Intake & Output 12/21 1600 16 0800 12/21 0000 Intake Total 500 1000 Output Total 600 1300 Balance -100 -300 Intake, IV 500 1000 Output, Urine 600 1300 Patient 223 lb Weight Weight Bed scale Measurement Method Physical Exam General Appearance: Alert, Oriented X3, Cooperative Skin: No Rashes, No Breakdown HEENT: Atraumatic, PERRLA, EOMI Cardiovascular: Regular Rate, Normal S1, Normal S2, No Murmurs Lungs: Clear to Auscultation, Normal Air Movement Abdomen: Soft, No Tenderness Neurological: Patient has normal speech and alert and oriented X3 Strength is 2/ 5 in left upper extremity; 4/5 in left lower Strength is 4/5 in right upper/ lower extremity Reflexes are hypoactive Sensation decreased at left lower extremity at the level of the dorsum of the left foot Extremities: No Edema, left arm bruising and abrasions at the elbow; left lower extremity abraisons at the knee Vascular: Normal Pulses, Pulses Symmetrical Current Medications: Current Medications Sig/Alfredito Start time Last Medication Dose Route Stop Time Status Admin Acetaminophen 1,000 MG Q8P PRN 12/21 0515 AC 12/21 N/A 1 UNIT IV 0538 Acetylcysteine 600 MG ONCE ONE 12/20 1715 DC 12/20 PO 12/20 1716 1722 Aspirin 0 .STK-MED ONE 12/20 2008 DC PO Aspirin 81 MG ONCE ONE 12/21 1999 DC 07 PO 12/20 Aspirin Buffered 81 MG DAILY 12/21 0900 AC 12/21 PO 0846 Atorvastatin Calcium 80 MG 1700 12/20 2245 AC 12/21 PO 0347 Ceftriaxone Sodium 1,000 MG 2000 12/22 1999 AC IV Ceftriaxone Sodium 0 .STK-MED ONE 12/20 2008 DC .ROUTE Ceftriaxone Sodium 1,000 MG ONCE ONE 12/21 1999 DC 12/20 IV 12/20 Finasteride 5 MG DAILY 12/21 1113 AC PO Guaifenesin 600 MG ONCE ONE 12/20 1700 CAN PO 12/20 1701 Heparin Sodium 5,000 UNIT Q8 12/20 2200 AC 12/21 (Porcine) SC 0509 Lidocaine 1 PAT Q24H 12/20 2130 AC 12/21 EXT 0347 Lorazepam 1 MG ONE ONE 12/21 0815 DC 12/21 IV 12/21 0816 1017 Melatonin 5 MG AT BEDTIME 12/21 0500 AC 12/21 PO 0509 Ondansetron HCl 4 MG .STK-MED ONE 12/21 0409 DC IM 12/21 0410 Ondansetron HCl 4 MG Q8P PRN 12/20 2145 AC 12/21 IV 0413 Ondansetron HCl 4 MG ONCE ONE 12/20 2030 DC 12/20 IV 12/20 203 204 Ondansetron HCl 0 .STK-MED ONE 12/20 2021 DC .ROUTE Sodium Chloride 1,000 ML ONCE ONE 12/21 0415 AC 12/21 IV 12/21 1414 0509 Sodium Chloride 1,000 ML ONCE ONE 12/20 2115 DC 12/20 IV 12/21 0354 2315 Sodium Chloride 1,000 ML BOLUS ONE 12/20 1645 DC 12/20 IV 12/20 1844 1722 Tamsulosin HCl 0.4 MG DAILY 12/21 0900 AC 12/21 PO 0846 Last 24 Hrs of Lab/Italo Results Last 24 Hrs of Labs/Mics: Laboratory Tests 12/21/17 0615: Anion Gap 12, Estimated GFR 42 L, BUN/Creatinine Ratio 16.3, Troponin I 0.04, Triglycerides 178 H, Cholesterol 223 H, LDL Cholesterol, Calc 150 H, HDL Cholesterol 38 L, Cholesterol/HDL Ratio 6 H, CBC w Diff NO MAN DIFF REQ, RBC 5.35, MCV 78.9 L, MCH 25.6 L, MCHC 32.4 L, RDW 16.2 H, MPV 8.8, Gran % 83.5 H, Lymphocytes % 9.0 L, Monocytes % 7.0, Eosinophils % 0.3, Basophils % 0.2, Absolute Granulocytes 7.8 H, Absolute Lymphocytes 0.8 L, Absolute Monocytes 0.6, Absolute Eosinophils 0, Absolute Basophils 0 12/20/172254: Troponin I 0.04 12/20/172254: Lactic Acid 1.4 12/20/171734: Urine Color YEL, Urine Clarity CLDY H, Urine pH 6.0, Ur Specific [place] 1.020, Urine Protein TRACE H, Urine Ketones NEG, Urine Nitrite NEG, Urine Bilirubin NEG, Urine Urobilinogen 0.2, Ur Leukocyte Esterase LARGE H, Ur Microscopic SEDIMENT EXAMINED, Urine RBC 5-10 H, Urine WBC > 75 H, Urine Bacteria MANY H, Urine Hemoglobin LARGE H, Urine Glucose NEG 12/20/17 1430: Anion Gap 12, Estimated GFR 34 L, BUN/Creatinine Ratio 17.4, Glucose 93, Calcium 9.1, Magnesium 2.0, Troponin I < 0.01, TSH &T3 &Free T4 Intrp 3.690, CBC w Diff MAN DIFF ORDERED, RBC 5.68, MCV 78.6 L, MCH 25.5 L, MCHC 32.4 L, RDW 16.7 H, MPV 8.4, Gran % 86.8 H, Lymphocytes % 5.7 L, Monocytes % 7.2, Eosinophils % 0.1, Basophils % 0.2, Absolute Granulocytes 10.6 H, Absolute Lymphocytes 0.7 L, Absolute Monocytes 0.9 H, Absolute Eosinophils 0, Absolute Basophils 0, Platelet Estimate VERIFIED BY SMEAR, Hypochromic-Microcytic 1+, Anisocytosis 1+, Microcytic Cells 1+ Microbiology 12/21 0415 URINE ROUT: Urine Culture - RECD 12/21 0002 BLOOD: Blood Culture - RECD 12/20 2245 BLOOD: Blood Culture - RECD 12/205 URINE ROUT: Urine Culture - RECD Assessment/Plan Assessment: Patient is a 82 year old male with past medical history of hypertension, hyperlipidemia and BPH with previous treatments (TURP 2007), CKD, CAD status post stent who [facility] ED for multiple falls at home. Patient brought in by daughters. Urology: Leela Problem List: 1. CVA-Multiple lacunar Infarcts; Severe stenosis of right vertebral artery 2. Hematuria 3. UTI 4. H/O Hypertension PLAN: CVA * Patient continues to have left sided deficitis including tongue deviation to the left; facial droop and left arm weakness * Follow up cardiology and neurology recommendations/consultation * MRI unable to be done 12/21/17 as patient movieng too much in MRI * F/U ECHO * CTA demonstrates severe stenosis of Rt. Vertebral artery origin * Abnormal lipid panel: T; Cholesterol 223; LDL: 150; HDL: 38 * TSH/T3/T4: 3.690 HEMATURIA * Patient had UA suggestive of UTI and hematuria present; Urology consulted ( Leela); patient has a history of BPH and urological procedures; including some with Dr. Mederos * patient advised by urology to continue tamsulosin; add finasteride 5mg po qd; treat UTI; adjust abx when urine culture avialable * Renal US: 1. Normal kidneys. No evidence of hydronephrosis. 2. Bladder not adequately assessed due to decompression by Hill catheter. 3. Enlarged prostate gland noted. * Hill for now; voiding trial in next couple of days if he does well * May need repeat cystoscopy at some point * Creatinine down to 1.6 from 1.9 UTI * continue patient on Day 1 Ceftriaxone 1000mg * follow up culture Code Status: Full Code DVT PPx: Heparin SC Diet: Currently NPO; failed swallow eval Problem List: 1. UTI (urinary tract infection) 2. CVA (cerebral vascular accident) Pain Ratin Pain Location: Left arm pain Pain Goal: Pain 4 or less Pain Plan: As per pain pathway Tomorrow's Labs & Rationales: CBC BEP DVT/Prophylaxis: pharmacological
[2017-12-21 15:18] VITALS: BP 150/80
--- NOTE | 2017-12-21 17:46 | Cons- Neurology ---
General Information and HPI Consulting Request Date of Consult: 12/21/17 Requested By: Kay YBARRA,Alejandra Mcknight History of Present Illness: 82-year-old male admitted to hospital yesterday afternoon He apparently had been doing well recently His daughter saw him about a week ago and spoke with him about a day prior to his sudden illness Yesterday he had a series of falls He developed significant imbalance There were no other certain complaints the patient offered at that time He was speaking yesterday Today family knows that he has not been speaking and has had weakness of left upper extremity No convulsions noted No clear history of head injury No recent fevers Family states that his condition has deteriorated overnight Allergies/Medications Allergies: Coded Allergies: NO KNOWN ALLERGIES (02/08/13) Home Med List: Amlodipine Besylate 5 MG TABLET 1 TAB PO DAILY BP (Reported) Atorvastatin Calcium 10 MG TABLET 1 TAB PO DAILY CHOLESTEROL (Reported) Tamsulosin HCl (Flomax) 0.4 MG CAP.ER.24H 1 CAP PO DAILY (Reported) Current Medications: Current Medications Sig/Alfredito Start time Last Medication Dose Route Stop Time Status Admin Acetaminophen 1,000 MG Q8P PRN 12/21 0515 AC 12/21 N/A 1 UNIT IV 0538 Aspirin 0 .STK-MED ONE 12/20 2008 DC PO Aspirin 81 MG ONCE ONE 12/21 1999 DC 12/20 PO 12/20 2000 203 Aspirin Buffered 81 MG DAILY 12/21 0900 AC 12/21 PO 0846 Atorvastatin Calcium 80 MG 1700 12/20 2245 AC 12/21 PO 0347 Ceftriaxone Sodium 1,000 MG 12/21 AC IV Ceftriaxone Sodium 0 .STK-MED ONE 12/20 2008 DC .ROUTE Ceftriaxone Sodium 1,000 MG ONCE ONE 12/21 1999 DC 12/20 IV 12/20 Finasteride 5 MG DAILY 12/21 1113 AC 12/21 PO 1408 Heparin Sodium 5,000 UNIT Q8 12/20 2200 AC 12/21 (Porcine) SC 1408 Lidocaine 1 PAT Q24H 12/20 2130 AC 12/21 EXT 0347 Lorazepam 1 MG ONE ONE 12/21 0815 DC 12/21 IV 12/21 0816 1017 Melatonin 5 MG AT BEDTIME 12/21 0500 AC 12/21 PO 0509 Ondansetron HCl 4 MG .STK-MED ONE 07/16 0409 DC IM 12/21 0410 Ondansetron HCl 4 MG Q8P PRN 12/20 2145 AC 12/21 IV 0413 Ondansetron HCl 4 MG ONCE ONE 12/20 2029 DC 12/20 IV 12/20 Ondansetron HCl 0 .STK-MED ONE 12/20 2021 DC .ROUTE Sodium Chloride 1,000 ML ONCE ONE 12/21 0415 DC 12/21 IV 12/21 1414 0509 Sodium Chloride 1,000 ML ONCE ONE 12/20 2115 DC / IV 12/21 0354 2315 Sodium Chloride 1,000 ML BOLUS ONE 12/20 1645 DC 12/20 IV 12/20 1844 1722 Tamsulosin HCl 0.4 MG DAILY 12/21 0900 AC 12/21 PO 0846 Review of Systems Review of Systems: Patient unable to offer complaints due to speech difficulty He did have sedation earlier for MRI scan No history of fever or head trauma There was no complaint of headache or visual change and no history of nausea or vomiting Other systems not available Past History Travel History Traveled to [place] past 21 day No Medical History Cardiovascular: hypertension, hyperlipidemia Surgical History Surgical History: non-contributory Psychosocial History Services at Home: None Smoking Status: Former Smoker ETOH Use: denies use Illicit Drug Use: denies illicit drug use Employment History Employment: Retired Exam & Diagnostic Data Vital Signs and I&O Vital Signs Date Time Temp Pulse Resp B/P B/P Pulse O2 O2 Flow FiO2 Mean Ox Delivery Rate 12/21 1518 97.8 109 20 150/80 98 / 1108 Room Air 12/21 0846 100 180/80 12/21 0800 96 Room Air 12/21 0608 97.7 124 20 180/60 96 Room Air 12/20 2326 97.4 92 18 168/90 94 Room Air 12/20 2034 97.4 113 20 180/86 96 Room Air Intake & Output 12/21 1600 16 0800 12/21 0000 Intake Total 462 585 9303 Output Total 927 367 4931 Balance 425 -100 -300 Intake, IV 104 193 9294 Intake, Oral 25 Output, Urine 660 422 8949 Patient 223 lb Weight Weight Bed scale Measurement Method Lethargic Minimal speech Not following commands Agitated Heart sounds normal no carotid bruits distal pulses intact, Extraocular movements full, pupils equal reactive, inattention to left, no obvious facial weakness Tongue appears midline Hearing cannot be assessed Not moving left upper extremity Sensory exam difficult to assess Deep tendon reflexes hypoactive throughout coord functions grossly intact Last 48 Hours of Lab Results: Laboratory Tests 12/21 12/20 12/20 3454 9894 7976 Chemistry Sodium (137 - 145 mmol/L) 141 Potassium (3.5 - 5.1 mmol/L) 4.6 Chloride (98 - 107 mmol/L) 107 Carbon Dioxide (22 - 30 mmol/L) 22 Anion Gap (5 - 16) 12 BUN (9 - 20 mg/dL) 26 H Creatinine (0.7 - 1.2 mg/dL) 1.6 H Estimated GFR (>60 ml/min) 42 L BUN/Creatinine Ratio (7 - 25 %) 16.3 Lactic Acid (0.7 - 2.1 mmol/L) 1.4 Troponin I (<0.11 ng/ml) 0.04 0.04 Triglycerides (<150 mg/dL) 178 H Cholesterol (< 200 MG/DL) 223 H LDL Cholesterol, Calc (65 - 129 mg/dL) 150 H HDL Cholesterol (40 - 60 mg/dL) 38 L Cholesterol/HDL Ratio (0.00 - 4.88 %) 6 H Hematology CBC w Diff NO MAN DIFF REQ WBC (4.8 - 10.8 /CUMM) 9.3 RBC (4.70 - 6.10 /CUMM) 5.35 Hgb (14.0 - 18.0 G/DL) 13.7 L Hct (42 - 52 %) 42.2 MCV (80.0 - 94.0 FL) 78.9 L MCH (27.0 - 31.0 PG) 25.6 L MCHC (33.0 - 37.0 G/DL) 32.4 L RDW (11.5 - 14.5 %) 16.2 H Plt Count (130 - 400 /CUMM) 236 MPV (7.4 - 10.4 FL) 8.8 Gran % (42.2 - 75.2 %) 83.5 H Lymphocytes % (20.5 - 51.1 %) 9.0 L Monocytes % (1.7 - 9.3 %) 7.0 Eosinophils % (0 - 5 %) 0.3 Basophils % (0.0 - 2.0 %) 0.2 Absolute Granulocytes (1.4 - 6.5 /CUMM) 7.8 H Absolute Lymphocytes (1.2 - 3.4 /CUMM) 0.8 L Absolute Monocytes (0.10 - 0.60 /CUMM) 0.6 Absolute Eosinophils (0.0 - 0.7 /CUMM) 0 Absolute Basophils (0.0 - 0.2 /CUMM) 0 12/20 1735 Urines Urine Color (YEL,AMB,STR) YEL Urine Clarity (CLEAR) CLDY H Urine pH (5.0 - 8.0) 6.0 Ur Specific [place] (1.001 - 1.035) 1.020 Urine Protein (NEG,<30 MG/DL) TRACE H Urine Ketones (NEG) NEG Urine Nitrite (NEG) NEG Urine Bilirubin (NEG) NEG Urine Urobilinogen (0.1 - 1.0 EU/dl) 0.2 Ur Leukocyte Esterase (NEG) LARGE H Ur Microscopic SEDIMENT EXAMINED Urine RBC (0 - 5 /HPF) 5-10 H Urine WBC (0 - 2 /HPF) > 75 H Urine Bacteria (NEG/NONE) MANY H Urine Hemoglobin (NEG) LARGE H Urine Glucose (N MG/DL) NEG 12/20 1430 Chemistry Sodium (137 - 145 mmol/L) 142 Potassium (3.5 - 5.1 mmol/L) 4.9 Chloride (98 - 107 mmol/L) 107 Carbon Dioxide (22 - 30 mmol/L) 23 Anion Gap (5 - 16) 12 BUN (9 - 20 mg/dL) 33 H Creatinine (0.7 - 1.2 mg/dL) 1.9 H Estimated GFR (>60 ml/min) 34 L BUN/Creatinine Ratio (7 - 25 %) 17.4 Glucose (65 - 99 mg/dL) 93 Calcium (8.4 - 10.2 mg/dL) 9.1 Magnesium (1.6 - 2.3 mg/dL) 2.0 Troponin I (<0.11 ng/ml) < 0.01 TSH &T3 &Free T4 Intrp (0.27 - 4.20 uIU/mL) 3.690 Hematology CBC w Diff MAN DIFF ORDERED WBC (4.8 - 10.8 /CUMM) 12.2 H RBC (4.70 - 6.10 /CUMM) 5.68 Hgb (14.0 - 18.0 G/DL) 14.5 Hct (42 - 52 %) 44.6 MCV (80.0 - 94.0 FL) 78.6 L MCH (27.0 - 31.0 PG) 25.5 L MCHC (33.0 - 37.0 G/DL) 32.4 L RDW (11.5 - 14.5 %) 16.7 H Plt Count (130 - 400 /CUMM) 242 MPV (7.4 - 10.4 FL) 8.4 Gran % (42.2 - 75.2 %) 86.8 H Lymphocytes % (20.5 - 51.1 %) 5.7 L Monocytes % (1.7 - 9.3 %) 7.2 Eosinophils % (0 - 5 %) 0.1 Basophils % (0.0 - 2.0 %) 0.2 Absolute Granulocytes (1.4 - 6.5 /CUMM) 10.6 H Absolute Lymphocytes (1.2 - 3.4 /CUMM) 0.7 L Absolute Monocytes (0.10 - 0.60 /CUMM) 0.9 H Absolute Eosinophils (0.0 - 0.7 /CUMM) 0 Absolute Basophils (0.0 - 0.2 /CUMM) 0 Platelet Estimate (ADEQUATE) VERIFIED BY SMEAR Hypochromic-Microcytic 1+ Anisocytosis 1+ Microcytic Cells 1+ Imaging/Other Studies: CT brain: 1. No acute intracranial hemorrhage. 2. Multiple new (compared to 2013) scattered rounded subcentimeter areas of hypoattenuation. While a few of these findings are most likely consistent with lacunar infarcts, additional areas are less classic in distribution raising the possibility of possible underlying metastatic disease. Consider further evaluation with MRI to definitively characterize these findings. 3. Moderate to severe chronic small vessel ischemic change. MRI BRAIN : IMPRESSION: 1. Imaging is markedly suboptimal due to confusion and poor cooperation from the patient. 2. There are areas of restricted diffusion in the right frontoparietal regions, consistent with acute infarcts. There is no evidence of hemorrhagic transformation. 3. There is diffuse volume loss and there are chronic microvascular ischemic changes. 4. There are no large masses, fluid collections or midline shift. Assessment/Plan Assessment: Acute onset of neurologic change; probable CVA multiple MRI scan brain suboptimal but suggestive of frontal lobe infarcts Etiology remains uncertain Recommendations: Suggest echocardiogram and cardiac evaluation for possible SBE Rodriguez culture, Lyme, babesiosis titer, Attempt to repeat MRI brain if patient less agitated CSF if no improvement Consult Acknowledgment - Thank you for your consult request.
[2017-12-21 22:10] VITALS: BP 142/82
[2017-12-22 07:00] VITALS: BP 176/84
--- NOTE | 2017-12-22 07:01 | PN- Housestaff ---
Sobeida Muiñz 12/22/17 0700: Subjective Follow-up For: CVA Left Hip Pain Tele-Events Since Last Visit: NSR, 66, 0.08, 0.14 Subjective: Patient seen and examined at bedside this morning. Complains of significant left sided pain in the left lower extremity including the hip and knee. Left hip and knee x-ray has been ordered. Patient will be given pain medication in order to tolerate. He was alert and oriented to person place and time this morning. Denies chest pain or shortness of breath. Review of Systems Constitutional: Denies: see HPI. Objective Last 24 Hrs of Vital Signs/I&O Vital Signs Date Time Temp Pulse Resp B/P B/P Pulse O2 O2 Flow FiO2 Mean Ox Delivery Rate 12/22 0857 80 134/70 12/22 07 98.4 86 20 176/84 98 Room Air 12/21 2210 98.1 106 20 142/82 97 Room Air 12/21 1600 Room Air 12/21 1518 97.8 109 20 150/80 98 12/21 1108 Room Air Intake & Output 12/22 1600 12/22 0800 12/22 0000 Intake Total 300 Output Total 350 400 Balance -50 -400 Intake, IV 300 Output, Urine 350 400 Patient 151 lb Weight Weight Bed scale Measurement Method Physical Exam General Appearance: Alert, Oriented X3, Mild Distress, Patient unable to follow all commands HEENT: PERRLA, EOMI Neck: Supple, No JVD Cardiovascular: Regular Rate, Normal S1, Normal S2 Lungs: Clear to Auscultation, Normal Air Movement Neurological: Strength 2/5 in left upper extremity; 3/5 in left lower Strength 4 /5 in right upper and lower extremity Reflexes hypoactive sensation decreased in left lower extremity as per patient Tongue deviated to the left Gait unassessed Extremities: No Clubbing, No Cyanosis, No Edema, Tenderness to palpation of left lower extremity Vascular: Normal Pulses, Pulses Symmetrical Current Medications: Current Medications Sig/Alfredito Start time Last Medication Dose Route Stop Time Status Admin Acetaminophen 1,000 MG Q8P PRN 12/21 05 AC 12/22 N/A 1 UNIT IV 09 Aspirin Buffered 81 MG DAILY 12/21 09 AC 12/22 PO 0856 Atorvastatin Calcium 80 MG 1700 12/20 2244 AC 12/21 PO 2019 Ceftriaxone Sodium 1,000 MG 12/21 AC 12/21 IV 2019 Finasteride 5 MG DAILY 12/21 1113 AC 12/22 PO 0856 Heparin Sodium 5,000 UNIT Q8 12/20 2200 AC 12/22 (Porcine) SC 0451 Hydromorphone HCl 0.6 MG ONCE ONE 12/22 0945 DC 12/22 IV 12/22 0946 0947 Lidocaine 1 PAT Q24H 12/20 2130 AC 12/21 EXT 2027 Melatonin 5 MG AT BEDTIME 12/21 0500 AC 12/21 PO 2019 Morphine Sulfate 1 MG ONCE ONE 12/22 0730 DC 12/22 IV 12/22 0731 0733 Ondansetron HCl 4 MG Q8P PRN 12/20 2145 AC 12/21 IV 0413 Sodium Chloride 1,000 ML Q20H 12/21 1900 AC 12/21 IV 12/22 1459 1911 Sodium Chloride 1,000 ML ONCE ONE 12/21 0415 DC 12/21 IV 12/21 1414 0509 Tamsulosin HCl 0.4 MG DAILY 12/21 0900 12/22 PO 0857 Last 24 Hrs of Lab/Italo Results Last 24 Hrs of Labs/Mics: Laboratory Tests 12/22/17 0640: Anion Gap 13, Estimated GFR 45 L, BUN/Creatinine Ratio 14.7, CBC w Diff NO MAN DIFF REQ, RBC 5.00, MCV 78.6 L, MCH 25.4 L, MCHC 32.3 L, RDW 16.3 H, MPV 8.6 , Gran % 81.1 H, Lymphocytes % 9.5 L, Monocytes % 8.5, Eosinophils % 0.5, Basophils % 0.4, Absolute Granulocytes 5.7, Absolute Lymphocytes 0.7 L, Absolute Monocytes 0.6, Absolute Eosinophils 0, Absolute Basophils 0, Babesia microti IgG Ab Pending, Babesia microti IgM Ab Pending, Babesia Interpretation Pending Assessment/Plan Assessment: Patient is a 82 year old male with past medical history of hypertension, HLD, BPH with previous urological procedures, CKD, CAD status post stent. Patient presented to ED for multiple falls at home as per his daughters. Foudn to have a positive UA on admission. CT negative for hemorrhage but new areas of hypoattention consistent with lacunar infarcts; MRI was suboptimal but demonstrates frontal lobe infarcts. CTA neck demonstrated severe stenosis of right vertebral artery. Patient continues to show signs of acute left hemiplegia. Patient complaining of signficiant left sided hip pain today. For X-ray of left hip. Problem List: 1. 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 UTI/Hematuria-Day 2 antibitoics 3. History of BPH PLAN: * Patient seen by neurology. Follow up with serology including parham culture, lyme , babesiosis titer; repeat MRI if necessary * Cardiology Dr. Mccallum on board; ECHO demonstrates 65% EF; stage 1 diastolic dysfunction * Left hip-Xray negative for donavan fractures or dislocations; degenerative changes seen * Patient seen by Urology Dr. Swenson; continue finasteride and tamsulosin; leave jones; voiding trial when condition improved * Urine culture: no growth after day 1 * Day 2 Ceftriaxone for UTI; Creatinine trending down to 1.5 * Follow up blood cultures Code Status: Full Code DVT PPx: Heparin SC Diet: NPO failed swallow; will reassess PT recommends acute rehab for now Problem List: 1. CVA (cerebral vascular accident) 2. UTI (urinary tract infection) Pain Ratin Pain Location: Left hip Pain Goal: Pain 7 or less Pain Plan: As per pain pathway Tomorrow's Labs & Rationales: CBC BEP Dago Villanuevajr 12/22/17 1323: Attending MD Review Statement Attending Statement Attending MD Statement: examined this patient, discuss w/resident/PA/MAMMALOGY TEACHER, agreed w/resident/PA/MAMMALOGY TEACHER, reviewed EMR data (avail), discussed with nursing, discussed with case mgmt Attending Assessment/Plan: Stroke - currently on neuro exam has significant left arm weakness and tongue deviation and facial droop. Neuro consult appreciated and MRI brain showed- "There are areas of restricted diffusion in the right frontoparietal regions, consistent with acute infarcts. There is no evidence of hemorrhagic transformation". Echo done shows- "Abnormal relaxation filling pattern of the left ventricle for age (stage 1 diastolic dysfunction). The ejection fraction is visually estimated at 65 %. No evidence of thrombus in the LV cavity." CTA shows severe stenosis of Rt vertebral artery origin. Hematuria- seen by urology. started on finasteride. cont on flomax. JABIER - resolved and back to baseline. UTI- cont on ceftriaxone. Left leg pain- knee and hip xray done shows no fractures.
--- NOTE | 2017-12-22 07:09 | PN- Urology ---
Subjective Subjective: No acute distress. Confused Objective Vital Signs and I&Os Vital Signs Date Time Temp Pulse Resp B/P B/P Pulse O2 O2 Flow FiO2 Mean Ox Delivery Rate 12/22 0700 98.4 86 20 176/84 98 Room Air 12/21 2210 98.1 106 20 142/82 97 Room Air 12/21 1600 Room Air 12/21 1518 97.8 109 20 150/80 98 12/21 1108 Room Air 12/21 0846 100 180/80 12/21 0800 96 Room Air Intake & Output 12/22 0800 12/22 0000 16 1600 12/21 0800 12/21 0000 12/20 1600 Intake Total 300 276 200 9209 Output Total 350 400 821 079 8519 Balance -50 -400 425 -100 -300 Intake, IV 300 165 624 8496 Intake, Oral 25 Output, Urine 350 400 913 193 8018 Patient 151 lb 223 lb 162 lb Weight Weight Bed scale Bed scale Reported by Patient Measurement Method Abd: soft and non tender Genitalia: jones in place draining jonathan urine Laboratory Tests 12/22 0640 Chemistry Sodium Pending Potassium Pending Chloride Pending Carbon Dioxide Pending Anion Gap Pending BUN Pending Creatinine Pending BUN/Creatinine Ratio Pending Hematology CBC w Diff Pending WBC Pending RBC Pending Hgb Pending Hct Pending MCV Pending MCH Pending MCHC Pending RDW Pending Plt Count Pending MPV Pending Serology Babesia microti IgG Ab Pending Babesia microti IgM Ab Pending Babesia Interpretation Pending Renal ultrasound negative Assessment/Plan Assessment/Plan Imp: 1. Gross hematuria likely infection related 2. Likely multiple CVA's. w/u in progress Plan: 1. f/u urine culture and adjust abx accordingly 2. continue tamsulosin and finasteride 3. Leave jones for now. 4. Will give voiding trial in future when condition improved
[2017-12-22] MEDS ORDERED: LIPITOR80 M1 PO (07:58)
[2017-12-22] MEDS ORDERED: ASPIRIN81 M4 PO (07:58)
[2017-12-22] MEDS ORDERED: PROSCAR5 M1 PO (07:58)
[2017-12-22 07:59] LABS: ABSOLUTE BASOPHIL COUNT 0 /CUMM (0.0-0.2); ABSOLUTE EOSINOPHIL COUNT 0 /CUMM (0.0-0.7); ABSOLUTE GRANULOCYTE CT 5.7 /CUMM (1.4-6.5); ABSOLUTE LYMPH COUNT 0.7 /CUMM (1.2-3.4); ABSOLUTE MONOCYTE COUNT 0.6 /CUMM (0.10-0.60); BASOPHIL % 0.4 % (0.0-2.0); EOSINOPHIL % 0.5 % (0-5); GRANULOCYTE % 81.1 % (42.2-75.2); HEMATOCRIT 39.3 % (42-52); MEAN CORPUSCULAR HGB 25.4 PG (27.0-31.0); MEAN CORPUSCULAR HGB CONC 32.3 G/DL (33.0-37.0); MEAN CORPUSCULAR VOLUME 78.6 FL (80.0-94.0); MEAN PLATELET VOLUME 8.6 FL (7.4-10.4); PLATELET COUNT 232 /CUMM (130-400); RBC DISTRIBUTION WIDTH 16.3 % (11.5-14.5)
--- NOTE | 2017-12-22 08:02 | Patient Discharge Instructions ---
Discharge Instructions General Discharge Information You were seen/treated for: Stroke Multiple lacunar infarcts UTI BPH Severe stenosis of right vertebral artery Special Instructions: Follow-up with PCP in 1 week after discharge Follow-up with the neurologist in 1 week after discharge Follow-up with urologist in 1 week after discharge Follow-up with hay stacker in 1 week after discharge Please return to ED with worsening chest pain, palpitations, diziness, falls, headaches. Diet Continue normal diet: Yes Activity Full Activity/No Limits: No Acute Coronary Syndrome Inclusion Criteria At DC or during hospital stay patient has or had the following: ACS DIAGNOSIS No Discharge Core Measures Meds if any: Prescribed or Continued at Discharge Meds if any: NOT Prescribed or Continued at Discharge Congestive Heart Failure Inclusion Criteria At DC or during hospital stay patient has or had the following: CHF DIAGNOSIS No Discharge Core Measures Meds if any: Prescribed or Continued at Discharge Meds if any: NOT Prescribed or Continued at Discharge Cerebrovascular accident Inclusion Criteria At DC or during hospital stay patient has or had the following: CVA/TIA Diagnosis Yes Discharge Core Measures Meds if any: Prescribed or Continued at Discharge Antithrombotic Yes Statin (required if LDL =>70) Yes Anticoagulant Yes Meds if any: NOT Prescribed or Continued at Discharge Venous thromboembolism Inclusion Criteria VTE Diagnosis No VTE Type NONE VTE Confirmed by (Test) NONE Discharge Core Measures - Per Current guidelines, there needs to be overlap - treatment for the first 5 days of Warfarin therapy. - If discharged on Warfarin prior to 5 days of - overlap therapy, the patient will need to be - assessed for post discharge needs including - *Post discharge parental anticoagulation - *Warfarin and/or parental anticoagulation education - *Follow up date to check INR post discharge At least 5 days overlap therapy as Inpatient No Meds if any: Prescribed or Continued at Discharge Note: Overlap Therapy is Warfarin and Anticoagulant Meds if any: NOT Prescribed or Continued at Discharge
--- NOTE | 2017-12-22 08:13 | Discharge Summary ---
See Addendum Visit Information Visit Dates Admission Date: 12/20/17 Discharge Date: 12/28/2017 Hospital Course Course Attending Physician: Kay YBARRA,Alejandra Mcknight Primary Care Physician: Mckenzie YBARRA,Mark Elaine Hospital Course: Mr Silver is a 82 year old man w/ a PMHx of hypertension, hyperlipidemia, BPH (history unclear about treatment), CKD, CAD s/p stent(dates, and type of stent unknown) came to the hospital with a chief concern of multiple falls that started in the a.m around 8 AM on the day of presentation. Reported to have difficulty walking attributed to 2 imbalance issues, and fell without any injury to the head. He lives with his , whom he takes care of and is checked by his doctors regularly. He did not have any chest pain, palpitations. When daughter called him during the day, he reported to have had an episode of dizziness prior to the fall. Also reported to have exertional dyspnea. Did not report any neurological weakness, tingling numbness sensation, loss of bladder bowel function. No fever, no chills, no clear h/o of dysurea or urinary difficulty, or hematurea. No nausea or vomiting. At the time of admission-temperature 98.0, pulse rate 102, respiration 20, blood pressure 188/104, pulse ox 96% on room air. Pertinent lab findings: WBC 12.2(86% granulocytes) hemoglobin 14.5, MCV 78.6 (microcytosis), platelet count 242 Sodium 142, potassium 4.9, chloride 107, bicarbonate 23 BUN 33, creatinine 1.9( baseline 1.7 ) Glucose 93 Trop 0.01 TSH 3.69 UA had pyurea, ULE + CT cervical spine: 1. No acute fracture or significant subluxation involving the cervical spine. Severe degenerative changes from C5 through C7 including bony fusion.2. Minimal retrolisthesis present at the C3-C4 level most likely relates toextensive degenerative changes noted more inferiorly within the cervical spine. CT head: 1. No acute intracranial hemorrhage. 2. Multiple new (compared to 2013) scattered rounded subcentimeter areas of hypoattenuation. While a few of these findings are most likely consistent with lacunar infarcts, additional areas are less classic in distribution raising the possibility of possible underlying metastatic disease. there is a new hypodensity within the left basal ganglia measuring 6 mm consistent with a lacunar infarct. A similar finding is noted adjacent to the left lateral ventricle measuring 8 mm in size. There is a geographic hypoattenuation surrounding the latter finding. However, there is no effacement of the sulci. A tiny hypodensity is also noted within the left thalamus measuring 0.4 cm in size. In addition, there is a tiny hypodensity within the right frontal lobe anterior to the lateral ventricle. Additional tiny hypodensity measuring 0.6 cm in size is identified within the right occipital lobe. The osseous structures and soft tissues are normal. The mastoid air cells and visualized portions of the paranasal sinuses are well aerated. Moderate to severe chronic small vessel ischemic change. X ray fore arm: No acute fracture, dislocation or joint effusion is seen X-ray humerus left: 1. No acute fracture or dislocation is seen. 2. There is marked osteophytic change of the left shoulder, with findings suggesting rotator cuff impingement and tendinopathy. CT head and neck angiogram: Nondiagnostic CTA of the head secondary to significant motion artifact. cannot exclude significant arterial stenoses nor acute arterial occlusions within the head given the degree of artifact. There is the suggestion of a severe stenosis involving the left cavernous ICA segment. Nondiagnostic assessment for aneurysms given the degree of artifact. There is background moderate chronic microangiopathy and there are lacunar infarcts of indeterminate age within the deep harris nuclei bilaterally and possibly the periphery of the right parietal lobe. There is a severe stenosis of the right vertebral artery origin and there are moderate to severe segmental stenoses of the proximal V2 segment of the right vertebral artery. Moderate to severe stenosis of the left vertebral artery at the C3-C4 level. There is no significant stenosis involving the internal carotid arteries on either side. There is a fairly severe stenosis involving the left external carotid artery origin secondary to lipid rich atherosclerotic plaque. 1. R/o Ischemic CVA, likely multiple lacunar infarcts. 2. UTI 3. h/o BPH 4. 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 h/o HTN 6. Sepsis ischemic CVA/multiple lacunar infarcts Patient presented to the hospital after multiple falls within a week. He was found to have left upper extremity weakness associated with speech difficulty. He was found to have minimal speech and difficulty following commands. He was unable to move left upper extremity. CAT scan showed multiple lacunar infarcts and MRA showed frontoparietal region infarct. Head MRI showed large areas of restricted diffusion within the right MCA territory involving frontal and parietal lobes consistent with acute ischemia. He was admitted to telemetry for management of stroke. He was regularly monitored with NIH stroke scale, maintained on fall precautions. He was started on aspirin 81 daily and Lipitor 80 daily. He was evaluated by neurologist in the hospital. Patient was also evaluated by physical therapist, recommended short-term rehab. Echocardiogram showed normal left ventricle size, stage I diastolic dysfunction, no obvious regional wall abnormalities. UTI He was found to have abnormal urinalysis, nitrite, esterase positive, WBC and bacteria. He was started on IV ceftriaxone. Hill's catheter was placed. Urine cultures were negative. He was given 5 days of IV ceftriaxone in the hospital. History of BPH Patient has history of BPH, takes Flomax at home. Urology was consulted, started on finasteride. Hill's catheter was pulled out after 3 days of hospitalization. Urologist on board, recommended straight cath protocol if urine retention is greater than 500 mL with bladder scan Severe stenosis of right vertebral artery CTA neck showed severe stenosis of right vertebral artery with the new stroke symptoms. Started on aspirin and Lipitor, evaluated by neurologist as above. Hypertension Home medications amlodipine was held during the hospital stay Patient was started on lisinopril 5 mg given his stroke gerd Patient was started on omeprazole 40 daily for upper abdominal discomfort and hiccups Status post fall Patient complained left shoulder and left hip pain after his fall at home. Left shoulder x-ray, left forearm x-ray, left hip, Left knee x-ray were done within no acute fractures found DVT prophylaxis Heparin SC + ALPS Full code Allergies: Coded Allergies: NO KNOWN ALLERGIES (02/08/13) Pertinent Lab Results: IMPRESSION: 1. Normal kidneys. No evidence of hydronephrosis. 2. Bladder not adequately assessed due to decompression by Hill catheter. 3. Enlarged prostate gland noted. MRI head IMPRESSION: 1. Imaging is markedly suboptimal due to confusion and poor cooperation from the patient. 2. There are areas of restricted diffusion in the right frontoparietal regions, consistent with acute infarcts. There is no evidence of hemorrhagic transformation. 3. There is diffuse volume loss and there are chronic microvascular ischemic changes. 4. There are no large masses, fluid collections or midline shift. HEAD CTA IMPRESSION: - There is background moderate chronic microangiopathy and there are lacunar infarcts of indeterminate age within the deep harris nuclei bilaterally and possibly the periphery of the right parietal lobe (image 117 of series 4) for which a MRI of the brain would be helpful in excluding any acute infarcts given the history. - Nondiagnostic CTA of the head secondary to significant motion artifact. I cannot exclude significant arterial stenoses nor acute arterial occlusions within the head given the degree of artifact. There is the suggestion of a severe stenosis involving the left cavernous ICA segment. Nondiagnostic assessment for aneurysms given the degree of artifact. - There is a severe stenosis of the right vertebral artery origin and there are moderate to severe segmental stenoses of the proximal V2 segment of the right vertebral artery. Moderate to severe stenosis of the left vertebral artery at the C3-C4 level. - There is no significant stenosis involving the internal carotid arteries on either side. There is a fairly severe stenosis involving the left external carotid artery origin secondary to lipid rich atherosclerotic plaque. FOREARM XRY IMPRESSION: No acute fracture, dislocation or joint effusion is seen HUMERUS XRY IMPRESSION: 1. No acute fracture or dislocation is seen. 2. There is marked osteophytic change of the left shoulder, with findings suggesting rotator cuff impingement and tendinopathy. HEAD CT IMPRESSION: 1. No acute intracranial hemorrhage. 2. Multiple new (compared to 2013) scattered rounded subcentimeter areas of hypoattenuation. While a few of these findings are most likely consistent with lacunar infarcts, additional areas are less classic in distribution raising the possibility of possible underlying metastatic disease. Consider further evaluation with MRI to definitively characterize these findings. 3. Moderate to severe chronic small vessel ischemic change. Disposition Summary Disposition Principal Diagnosis: Ischemic CVA Multiple lacunar infarcts Frontoparietal infarct Urinary tract infection Additional Diagnosis: UTI Discharge Disposition: SNF Discharge Instructions General Discharge Information Code Status: Full Code Patient's Diet: As tolerated Patient's Activity: As tolerated Follow-Up Instructions/Appts: Follow-up with PCP in 1 week after discharge Follow-up with the neurologist in 1 week after discharge Follow-up with urologist in 1 week after discharge Follow-up with outpatient surgery rn in 1 week after discharge Medications at Discharge Discharge Medications: Stop taking the following medications: Atorvastatin Calcium (Atorvastatin Calcium) 10 MG TABLET ORAL DAILY Continue taking these medications: Tamsulosin HCl (Flomax) 0.4 MG CAP.ER.24H 1 Capsule ORAL DAILY Comments: Last Taken:12/28/17 Time:9:37A.M Amlodipine Besylate (Amlodipine Besylate) 5 MG TABLET 1 Tablet ORAL DAILY Comments: Last Taken:12/28/17 Time:9:37A.M Start taking the following new medications: Aspirin (Aspirin*) 81 MG TAB.CHEW 1 Tablet ORAL DAILY Qty = 30 No Refills Comments: Last Taken:12/28/17 Time:9:37A.M Atorvastatin Calcium (Lipitor) 80 MG TABLET 1 Tablet ORAL DAILY Qty = 30 No Refills Comments: Last Taken:12/27/17 Time:4:50P.M Finasteride (Proscar) 5 MG TABLET 1 Tablet ORAL DAILY Qty = 30 No Refills Comments: Last Taken:12/28/17 Time:9:37A.M Lisinopril (Lisinopril) 5 MG TABLET 1 Tablet ORAL DAILY Qty = 30 No Refills Comments: Last Taken:12/28/17 Time:9:37A.M Omeprazole (Omeprazole) 20 MG CAPSULE.DR 1 Capsule ORAL DAILY Qty = 30 No Refills Comments: Last Taken:12/28/17 Time:6:23A.M Copies To: Mckenzie YBARRA,Mark Elaine Attending Review Statement Documenting Attending: Kay YBARRA,Alejandra Mcknight
--- NOTE | 2017-12-22 08:53 | Cons- Cardiology ---
General Information and HPI Consulting Request Date of Consult: 12/22/17 Requested By: Kay YBARRA,Alejandra Mcknight Reason for Consult: CVA History of Present Illness: 82 year old patient , independant at baseline, living at home with his , without any known history of cardiac problems, admitted through the ED on 2017 for repeated falls, expressive aphasia, left hemiplegia. Upon admission, strength initially deteriorated, as well as the aphasia. Found to have UTI as well. Brain MRI was technically suboptimal due to patient agitation, but did show right frontoparietal acute infarct. CT scan was also suboptimal due to patient agitation but revealed microvascular disease, right frontoparietal infarct which appears acute, as well as deep harris matter infarcts, bilaterally. tPA was not administered due to low NIHSS upon arrival. Patient has regained speech and answers my questions appropriately, seems oriented. He has left sided neglect, dense left upper extremity plegia, but can move the left lower extremity against gravity. He is complaining of pain in the entire left leg as well as left arm. Allergies/Medications Allergies: Coded Allergies: NO KNOWN ALLERGIES (02/08/13) Home Med List: Amlodipine Besylate 5 MG TABLET 1 TAB PO DAILY BP (Reported) Aspirin (Aspirin*) 81 MG TAB.CHEW 1 TAB PO DAILY stroke Atorvastatin Calcium 10 MG TABLET 1 TAB PO DAILY CHOLESTEROL (Reported) Atorvastatin Calcium (Lipitor) 80 MG TABLET 1 TAB PO DAILY stroke Finasteride (Proscar) 5 MG TABLET 1 TAB PO DAILY bph Tamsulosin HCl (Flomax) 0.4 MG CAP.ER.24H 1 CAP PO DAILY (Reported) Current Medications: Current Medications Sig/Alfredito Start time Last Medication Dose Route Stop Time Status Admin Acetaminophen 1,000 MG Q8P PRN 12/21 0515 AC 12/21 N/A 1 UNIT IV 0538 Aspirin Buffered 81 MG DAILY 12/21 0900 AC 12/21 PO 0846 Atorvastatin Calcium 80 MG 1700 12/20 2245 AC 12/21 PO 2019 Ceftriaxone Sodium 1,000 MG 2000 12/22 1999 AC 12/21 IV 2019 Finasteride 5 MG DAILY 12/21 1113 AC 12/21 PO 1408 Heparin Sodium 5,000 UNIT Q8 12/20 2200 AC 12/22 (Porcine) SC 0451 Lidocaine 1 PAT Q24H 12/20 2130 AC 12/21 EXT 2026 Melatonin 5 MG AT BEDTIME 12/21 0500 12/21 PO 2019 Morphine Sulfate 1 MG ONCE ONE 12/22 0730 DC 12/22 IV 12/22 0731 0733 Ondansetron HCl 4 MG Q8P PRN 12/20 2145 AC 12/21 IV 0413 Sodium Chloride 1,000 ML Q20H 12/21 1900 AC 12/21 IV 12/22 1459 1911 Sodium Chloride 1,000 ML ONCE ONE 12/21 0415 DC 12/21 IV 12/21 1414 0509 Tamsulosin HCl 0.4 MG DAILY 12/21 0900 12/21 PO 0846 Review of Systems Review of Systems Constitutional: Reports: weakness. Denies: unexplained weight loss. EENTM: Denies: blurred vision, double vision, visual changes, hearing changes. Cardiovascular: Denies: chest pain, palpitations, syncope. Respiratory: Denies: cough, hemoptysis, orthopnea, short of breath. GI: Denies: abdominal pain, diarrhea, bowel incontinence, nausea, vomiting. Genitourinary: Reports: frequency. Denies: dysuria, hematuria. Musculoskeletal: Reports: see HPI. Skin: Reports: no symptoms. Neurological/Psychological: Reports: see HPI. Past History Travel History Traveled to [place] past 21 day No Medical History Cardiovascular: hypertension, hyperlipidemia Surgical History Surgical History: non-contributory Psychosocial History Services at Home: None Smoking Status: Former Smoker ETOH Use: denies use Illicit Drug Use: denies illicit drug use Employment History Employment: Retired Exam [employer] Diagnostic Data Vital Signs and I&O Vital Signs Date Time Temp Pulse Resp B/P B/P Pulse O2 O2 Flow FiO2 Mean Ox Delivery Rate 12/22 07 98.4 86 20 176/84 98 Room Air 12/21 2210 98.1 106 20 142/82 97 Room Air 12/21 1600 Room Air 12/21 1518 97.8 109 20 150/80 98 12/21 1108 Room Air Intake & Output 12/22 1600 12/22 0812/22 0000 12/21 1600 12/21 0812/21 0000 Intake Total 300 796 395 0426 Output Total 350 400 788 670 5056 Balance -50 -400 425 -100 -300 Intake, IV 300 627 780 6405 Intake, Oral 25 Output, Urine 350 400 078 597 5500 Patient 151 lb 223 lb Weight Weight Bed scale Bed scale Measurement Method Physical Exam General Appearance: awake, mild distress Head: atraumatic Eyes: Bilateral: PERRL, EOMI (right gaze deviation). Neck: supple, carotid bruit, trachea mid line Respiratory: chest non-tender, no respiratory distress, lungs clear Cardiovascular: regular rate/rhythm, murmur (protosystolic LLSB, soft), No evidence of peripheral embolic events. Gastrointestinal: normal bowel sounds, soft, non-tender Extremities: normal capillary refill, no edema Neurologic/Psych: awake, oriented x 3, facial droop, motor/sensory deficits Labs/Italo Results: Laboratory Tests 12/22 12/21 0640 0615 Chemistry Sodium (137 - 145 mmol/L) 143 141 Potassium (3.5 - 5.1 mmol/L) 4.1 4.6 Chloride (98 - 107 mmol/L) 110 H 107 Carbon Dioxide (22 - 30 mmol/L) 20 L 22 Anion Gap (5 - 16) 13 12 BUN (9 - 20 mg/dL) 22 H 26 H Creatinine (0.7 - 1.2 mg/dL) 1.5 H 1.6 H Estimated GFR (>60 ml/min) 45 L 42 L BUN/Creatinine Ratio (7 - 25 %) 14.7 16.3 Troponin I (<0.11 ng/ml) 0.04 Triglycerides (<150 mg/dL) 178 H Cholesterol (< 200 MG/DL) 223 H LDL Cholesterol, Calc (65 - 129 mg/dL) 150 H HDL Cholesterol (40 - 60 mg/dL) 38 L Cholesterol/HDL Ratio (0.00 - 4.88 %) 6 H Hematology CBC w Diff NO MAN DIFF REQ NO MAN DIFF REQ WBC (4.8 - 10.8 /CUMM) 7.0 9.3 RBC (4.70 - 6.10 /CUMM) 5.00 5.35 Hgb (14.0 - 18.0 G/DL) 12.7 L 13.7 L Hct (42 - 52 %) 39.3 L 42.2 MCV (80.0 - 94.0 FL) 78.6 L 78.9 L MCH (27.0 - 31.0 PG) 25.4 L 25.6 L MCHC (33.0 - 37.0 G/DL) 32.3 L 32.4 L RDW (11.5 - 14.5 %) 16.3 H 16.2 H Plt Count (130 - 400 /CUMM) 232 236 MPV (7.4 - 10.4 FL) 8.6 8.8 Gran % (42.2 - 75.2 %) 81.1 H 83.5 H Lymphocytes % (20.5 - 51.1 %) 9.5 L 9.0 L Monocytes % (1.7 - 9.3 %) 8.5 7.0 Eosinophils % (0 - 5 %) 0.5 0.3 Basophils % (0.0 - 2.0 %) 0.4 0.2 Absolute Granulocytes (1.4 - 6.5 /CUMM) 5.7 7.8 H Absolute Lymphocytes (1.2 - 3.4 /CUMM) 0.7 L 0.8 L Absolute Monocytes (0.10 - 0.60 /CUMM) 0.6 0.6 Absolute Eosinophils (0.0 - 0.7 /CUMM) 0 0 Absolute Basophils (0.0 - 0.2 /CUMM) 0 0 Serology Babesia microti IgG Ab Pending Babesia microti IgM Ab Pending Babesia Interpretation Pending Lyme Disease Antibody Pending 12/20 12/20 12/20 2255 2255 1735 Chemistry Lactic Acid (0.7 - 2.1 mmol/L) 1.4 Troponin I (<0.11 ng/ml) 0.04 Urines Urine Color (YEL,AMB,STR) YEL Urine Clarity (CLEAR) CLDY H Urine pH (5.0 - 8.0) 6.0 Ur Specific Clarence (1.001 - 1.035) 1.020 Urine Protein (NEG,<30 MG/DL) TRACE H Urine Ketones (NEG) NEG Urine Nitrite (NEG) NEG Urine Bilirubin (NEG) NEG Urine Urobilinogen (0.1 - 1.0 EU/dl) 0.2 Ur Leukocyte Esterase (NEG) LARGE H Ur Microscopic SEDIMENT EXAMINED Urine RBC (0 - 5 /HPF) 5-10 H Urine WBC (0 - 2 /HPF) > 75 H Urine Bacteria (NEG/NONE) MANY H Urine Hemoglobin (NEG) LARGE H Urine Glucose (N MG/DL) NEG 12/20 1430 Chemistry Sodium (137 - 145 mmol/L) 142 Potassium (3.5 - 5.1 mmol/L) 4.9 Chloride (98 - 107 mmol/L) 107 Carbon Dioxide (22 - 30 mmol/L) 23 Anion Gap (5 - 16) 12 BUN (9 - 20 mg/dL) 33 H Creatinine (0.7 - 1.2 mg/dL) 1.9 H Estimated GFR (>60 ml/min) 34 L BUN/Creatinine Ratio (7 - 25 %) 17.4 Glucose (65 - 99 mg/dL) 93 Calcium (8.4 - 10.2 mg/dL) 9.1 Magnesium (1.6 - 2.3 mg/dL) 2.0 Troponin I (<0.11 ng/ml) < 0.01 TSH &T3 &Free T4 Intrp (0.27 - 4.20 uIU/mL) 3.690 Hematology CBC w Diff MAN DIFF ORDERED WBC (4.8 - 10.8 /CUMM) 12.2 H RBC (4.70 - 6.10 /CUMM) 5.68 Hgb (14.0 - 18.0 G/DL) 14.5 Hct (42 - 52 %) 44.6 MCV (80.0 - 94.0 FL) 78.6 L MCH (27.0 - 31.0 PG) 25.5 L MCHC (33.0 - 37.0 G/DL) 32.4 L RDW (11.5 - 14.5 %) 16.7 H Plt Count (130 - 400 /CUMM) 242 MPV (7.4 - 10.4 FL) 8.4 Gran % (42.2 - 75.2 %) 86.8 H Lymphocytes % (20.5 - 51.1 %) 5.7 L Monocytes % (1.7 - 9.3 %) 7.2 Eosinophils % (0 - 5 %) 0.1 Basophils % (0.0 - 2.0 %) 0.2 Absolute Granulocytes (1.4 - 6.5 /CUMM) 10.6 H Absolute Lymphocytes (1.2 - 3.4 /CUMM) 0.7 L Absolute Monocytes (0.10 - 0.60 /CUMM) 0.9 H Absolute Eosinophils (0.0 - 0.7 /CUMM) 0 Absolute Basophils (0.0 - 0.2 /CUMM) 0 Platelet Estimate (ADEQUATE) VERIFIED BY SMEAR Hypochromic-Microcytic 1+ Anisocytosis 1+ Microcytic Cells 1+ Assessment/Plan Assessment/Plan 82 year old gentleman with acute left hemiplegia/aphasia/pain. Evidence of chronic microvascular cerebral disease and multiple lacunar infarcts. clinically appears to have an acute right MCA stroke, but imaging must be repeated as the patient was uncooperative. Left sided pain may be traumatic (left shoulder Xray negative for acute injury, but no lower extremity imaging yet) vs secondary to right thalamic infarct. No evidence of cardioembolic source at the moment. There is calcification of the aortic valve without evidence of vegetation. No arrhythmia observed. maintain on telemetry. I would hold off on FLY unless suspicion is high of a cardioembolic source. UTI being treated. Consult Acknowledgment - Thank you for your consult request.
--- NOTE | 2017-12-22 09:35 | ECHOCARDIOGRAM REPORT ---
JONATAN DAN Age: 82 : 1935 Gender: M Exam Date: 12/21/2017 19:38 Exam Location: 1 [address] Ht (in): 69 Wt (lb): 162 BSA: 1.90 BP: 180 / 80 Ordering Physician: Patricia Barger MD Referring Physician: Patricia Barger MD Technologist: Zully Falcon [facility] Room Number: [id number] Indications: Stroke Rhythm: Sinus Technical Quality: fair FINDINGS Left Ventricle Normal left ventricular size, wall thickness and systolic function with no obvious regional wall motion abnormalities. Abnormal relaxation filling pattern of the left ventricle for age (stage 1 diastolic dysfunction). . The ejection fraction is visually estimated at 65 %. Right Ventricle The right ventricle is normal in size and function. Right Atrium The right atrium is normal in size. Left Atrium The left atrium is normal in size. The interatrial septum is not well visualized. Mitral Valve Moderate mitral annular calcification . There is no mitral regurgitation. Aortic Valve Diffuse thickening of the aortic valve cusps with reduced excursion. Mild aortic stenosis with mean gradient not exceeding 20 mmHg and LIZZIE > 1.0 cm2 . There is trace aortic regurgitation. Tricuspid Valve The tricuspid valve is normal in structure and function. There is trace tricuspid regurgitation. Pulmonary artery systolic pressure is normal. Pulmonic Valve Structurally normal pulmonic valve. There is no pulmonic regurgitation. Pericardium Normal pericardium without effusion. No pleural effusion. Great Vessels Normal aortic root dimension. The aortic arch and great vessels are well seen and are normal. CONCLUSIONS Normal left ventricular size, wall thickness and systolic function with no obvious regional wall motion abnormalities. Abnormal relaxation filling pattern of the left ventricle for age (stage 1 diastolic dysfunction). The ejection fraction is visually estimated at 65 %. No evidence of thrombus in the LV cavity. The right ventricle is normal in size and function. The interatrial septum is not well visualized. Moderate mitral annular calcification . Diffuse thickening of the aortic valve cusps with reduced excursion. No vegetation visualized on aortic valve. Mild aortic stenosis with mean gradient not exceeding 20 mmHg and LIZZIE > 1.0 cm2 . There is trace aortic regurgitation. There is trace tricuspid regurgitation. Pulmonary artery systolic pressure is normal. Normal pericardium without effusion. Normal aortic root dimension. Amanda Mccallum M.D. (Electronically Signed) Final Date: 22 December 2017 09:30 MEASUREMENTS (Male / Female) Normal Values 2D ECHO LV Diastolic Diameter PLAX 4.1 cm 4.2 - 5.9 / 3.9 - 5.3 cm LV Systolic Diameter PLAX 2.7 cm 2.1 - 4.0 cm LV Fractional Shortening PLAX 34.1 % 25 - 46 % LV Ejection Fraction 2D Teich 63.6 % IVS Diastolic Thickness 0.9 cm LVPW Diastolic Thickness 0.9 cm LV Relative Wall Thickness 0.4 RV Internal Dim ED PLAX 2.4 cm 1.9 - 3.8 cm LVOT Diameter 1.9 cm Aortic Root Diameter 3.1 cm LA Systolic Diameter LX 3.3 cm 3.0 - 4.0 / 2.7 - 3.8 cm LA Volume 34.0 cm 18 - 58 / 22 - 52 cm Ascending Aorta Diameter 3.3 cm DOPPLER AV Peak Velocity 240.0 cm/s AV Peak Gradient 23.0 mmHg AV Mean Velocity 175.0 cm/s AV Mean Gradient 14.0 mmHg AV Velocity Time Integral 49.4 cm LVOT Peak Velocity 99.4 cm/s LVOT Peak Gradient 4.0 mmHg LVOT Mean Velocity 63.1 cm/s LVOT Mean Gradient 2.0 mmHg LVOT Velocity Time Integral 18.4 cm LVOT Stroke Volume 52.2 cm AV Area Cont Eq vti 1.1 cm AV Area Cont Eq pk 1.2 cm MV Peak Velocity 152.0 cm/s MV Peak Gradient 9.2 mmHg MV Mean Velocity 85.7 cm/s MV Mean Gradient 4.0 mmHg Mitral E Point Velocity 89.9 cm/s Mitral A Point Velocity 136.0 cm/s Mitral E to A Ratio 0.7 MV PHT Velocity 111.0 cm/s MV Deceleration Stevens 429.0 cm/s MV Pressure Half Time 77.6 ms MV Area PHT 2.8 cm MV Deceleration Time 412.0 ms PV Peak Velocity 135.0 cm/s PV Peak Gradient 7.3 mmHg PV Mean Velocity 83.2 cm/s PV Mean Gradient 3.0 mmHg PV Velocity Time Integral 24.0 cm LV E' Lateral Velocity 9.6 cm/s Mitral E to LV E' Lateral Ratio 9.4 LV E' Septal Velocity 6.4 cm/s Mitral E to LV E' Septal Ratio 14.0
--- NOTE | 2017-12-22 10:47 | RADIOLOGY REPORT ---
EXAMINATION: XR HIP, LEFT CLINICAL INFORMATION: Fall with hip pain COMPARISON: None TECHNIQUE: Two views of the left hip. FINDINGS: Degenerative changes are present in the hip with some sclerosis and osteophyte formation. A fracture or dislocation is not seen. IMPRESSION: Degenerative changes in the hip without fracture or dislocation.
--- NOTE | 2017-12-22 11:16 | RADIOLOGY REPORT ---
EXAMINATION: XR KNEE, LEFT CLINICAL INFORMATION: Status post fall with knee pain COMPARISON: None TECHNIQUE: Four views of the left knee. FINDINGS: Bones and soft tissues are normal. No fracture or joint effusion. Alignment is anatomic. Joint spaces are well maintained aside from some minimal narrowing of the medial compartment. No abnormal soft tissue calcification. IMPRESSION: No acute abnormality. Minimal narrowing medial compartment.
[2017-12-22 14:11] VITALS: BP 170/104
--- NOTE | 2017-12-22 14:39 | PN- Neurology ---
Subjective Subjective: left sided weakness Review of Systems: No headache, CP, vomiting or vertigo Objective Vital Signs and I&Os Vital Signs Date Time Temp Pulse Resp B/P B/P Pulse O2 O2 Flow FiO2 Mean Ox Delivery Rate 12/22 1411 97.7 95 20 170/104 95 Room Air 12/22 0857 80 134/70 12/22 0800 97 Room Air Room Air 12/22 0700 98.4 86 20 176/84 98 Room Air 12/21 2210 98.1 106 20 142/82 97 Room Air 12/21 1600 Room Air 12/21 1518 97.8 109 20 150/80 98 Intake & Output 12/22 1600 12/22 0800 12/22 0000 12/21 1600 12/21 0800 12/21 0000 Intake Total 300 996 637 0666 Output Total 350 400 340 597 5032 Balance -50 -400 425 -100 -300 Intake, IV 300 184 484 4757 Intake, Oral 25 Output, Urine 350 400 577 987 6029 Patient 151 lb 223 lb Weight Weight Bed scale Bed scale Measurement Method awake and alert left neglect dense left hemiparesis left babinski sign Current Medications: Current Medications Sig/Alfredito Start time Last Medication Dose Route Stop Time Status Admin Acetaminophen 1,000 MG Q8P PRN 12/21 0515 AC 12/22 N/A 1 UNIT IV 0927 Aspirin Buffered 81 MG DAILY 12/21 0900 AC 12/22 PO 0856 Atorvastatin Calcium 80 MG 1700 12/20 2245 AC 12/21 PO 2019 Ceftriaxone Sodium 1,000 MG 2000 12/22 1999 AC 12/21 IV 2019 Finasteride 5 MG DAILY 12/21 1113 AC 12/22 PO 0856 Heparin Sodium 5,000 UNIT Q8 12/20 2200 AC 12/22 (Porcine) SC 1420 Hydromorphone HCl 0.6 MG ONCE ONE 12/22 0945 DC 12/22 IV 12/22 0946 0947 Lidocaine 1 PAT Q24H 12/20 2130 AC 12/21 EXT 2027 Melatonin 5 MG AT BEDTIME 12/21 0500 AC 12/21 PO 2019 Morphine Sulfate 1 MG ONCE ONE 12/22 0730 DC 12/22 IV 12/22 0731 0733 Ondansetron HCl 4 MG Q8P PRN 12/20 2145 AC 12/22 IV 1428 Sodium Chloride 1,000 ML Q20H 12/21 1900 AC 07/16 IV 12/23 1058 1911 Tamsulosin HCl 0.4 MG DAILY 12/21 0900 AC 12/22 PO 0857 Assessment/Plan Assessment: Acute right hemispheric infarct, not seen on initial, limited MRI. Plan: PT, OT, ST Continue DVT precautions Repeat MRI Continue statin and antiplatelet rx Will need SNF
[2017-12-22 21:46] VITALS: BP 164/86
--- NOTE | 2017-12-22 23:14 | RADIOLOGY REPORT ---
EXAMINATION: XR PORTABLE ABDOMEN CLINICAL INFORMATION: Abdominal pain. COMPARISON: None TECHNIQUE: Portable supine view of the abdomen. FINDINGS: Small volume of stool scattered in the colon. No abnormally dilated bowel loop. Nonobstructive bowel pattern. No radiopaque urinary calculi. Multilevel degenerative spondylosis of the dorsal spine and lumbar spine IMPRESSION: Normal abdomen.
[2017-12-23 06:29] VITALS: BP 178/84
--- NOTE | 2017-12-23 07:04 | PN- Housestaff ---
Sobeida Muñiz 12/23/17 0704: Subjective Follow-up For: CVA Left arm and hip pain Tele-Events Since Last Visit: Normal sinus rhythm, 64, 0.08, 0.14 Subjective: Patient seen and examined at bedside this morning. Patient leaned over to his right side. Patient continues to have left-sided lower extremity pain including the left hip and knee. Patient alert to person place and time this morning. Left hip and knee x-ray negative for any fractures or dislocations. Patient denies any chest pain or shortness of breath this morning. Patient tolerating pain medication including IV morphine and Dilaudid given yesterday. We will continue to monitor pain and any new focal neurological deficits. Patient passed a swallow evaluation yesterday. Patient states he has increasing abdominal pain. Unknown status of patient's last bowel movement. Will give suppository. Review of Systems Constitutional: Denies: see HPI. Objective Last 24 Hrs of Vital Signs/I&O Vital Signs Date Time Temp Pulse Resp B/P B/P Pulse O2 O2 Flow FiO2 Mean Ox Delivery Rate 12/23 0629 98.2 76 18 178/84 95 Room Air 12/22 2146 98.2 62 18 164/86 95 Room Air 12/22 1411 97.7 95 20 170/104 95 Room Air 12/22 0857 80 134/70 12/22 0800 97 Room Air Room Air Intake & Output 12/23 0800 12/23 0000 12/22 1600 Intake Total 150 400 Output Total 1125 250 400 Balance -1125 -100 0 Intake, IV 150 400 Intake, Oral 0 Output, Urine 1125 250 400 Patient 153 lb Weight Weight Bed scale Measurement Method Physical Exam General Appearance: Alert, Oriented X3, Cooperative, Mild Distress HEENT: Atraumatic, PERRLA, EOMI Cardiovascular: Regular Rate, Normal S1, Normal S2 Lungs: Clear to Auscultation, Normal Air Movement Abdomen: Normal Bowel Sounds, Soft, No Tenderness Neurological: Left sided hemineglect Patient does not move his arm to full range of motion on command Strength 2/5 in left upper and lower extremity Strength 4/5 in right upper and lower extremity, Left Sided Facial Droop Tongue deviation to left Extremities: No Clubbing, No Cyanosis, No Edema, Left forearm and left knee abrasions s/p fall prior to admission Vascular: Normal Pulses, Pulses Symmetrical Current Medications: Current Medications Sig/Alfredito Start time Last Medication Dose Route Stop Time Status Admin Acetaminophen 1,000 MG .STK-MED ONE 12/22 1716 DC IV 12/22 1717 Acetaminophen 1,000 MG Q8P PRN 12/21 0515 12/22 N/A 1 UNIT IV 1719 Aspirin Buffered 81 MG DAILY 12/21 0900 AC 12/22 PO 0856 Atorvastatin Calcium 80 MG 1700 12/20 2245 AC 12/22 PO 1719 Ceftriaxone Sodium 1,000 MG 12/21 AC 12/22 IV 205 Finasteride 5 MG DAILY 12/21 1113 AC 12/22 PO 0856 Heparin Sodium 5,000 UNIT Q8 12/20 2200 12/23 (Porcine) SC 0624 Hydromorphone HCl 2 MG .STK-MED ONE 12/22 1827 DC IV 12/22 1828 Hydromorphone HCl 0.4 MG ONCE ONE 12/22 1815 DC 12/22 IV 12/22 1816 1826 Hydromorphone HCl 0.6 MG ONCE ONE 12/22 0945 DC 12/22 IV 12/22 0946 0947 Lidocaine 1 PAT Q24H 12/20 2130 12/22 EXT 2054 Melatonin 5 MG AT BEDTIME 12/21 0500 12/22 PO 2119 Morphine Sulfate 2 MG ONCE ONE 12/23 0300 DC 12/23 IV 12/23 0301 0312 Morphine Sulfate 1 MG ONCE ONE 12/22 0730 DC 12/22 IV 12/22 0731 0733 Ondansetron HCl 4 MG .STK-MED ONE 12/22 2000 DC IM 12/22 2001 Ondansetron HCl 4 MG Q8P PRN 12/20 2145 12/22 IV 2003 Patient Medication 1 ED ONE ONE 12/22 1715 DC Teaching ED 12/22 1716 Sodium Chloride 1,000 ML Q20H 12/21 1900 AC 12/22 IV 12/23 1058 1844 Tamsulosin HCl 0.4 MG DAILY 12/21 0900 12/22 PO 0857 Last 24 Hrs of Lab/Italo Results Last 24 Hrs of Labs/Mics: Laboratory Tests 12/23/17 0655: Sodium Pending, Potassium Pending, Chloride Pending, Carbon Dioxide Pending, Anion Gap Pending, BUN Pending, Creatinine Pending, BUN/Creatinine Ratio Pending , CBC w Diff Pending, WBC Pending, RBC Pending, Hgb Pending, Hct Pending, MCV Pending, MCH Pending, MCHC Pending, RDW Pending, Plt Count Pending, MPV Pending Lines/Diet/Fluids Hill Still Needed? Yes Assessment/Plan Assessment: Patient is an 82-year-old male with past medical history of hypertension, hyperlipidemia, benign prostatic hyperplasia with previous urological procedures , CKD, coronary artery disease post-stent. Patient had presented to the [facility] ED for multiple falls at home as per his daughter. Patient was found to have a positive UA on admission. Currently patient is on day [address] was negative for hemorrhage but new areas of hypoattenuation consistent with lacunar infarcts. MRI was suboptimal but demonstrates frontal lobe infarct. We will repeat MRI as per neurology due to suboptimal study. CT neck demonstrated severe stenosis of the right vertebral artery. Patient continues to show signs of acute left hemiplegia including left arm weakness left lower extremity weakness, left-sided facial droop, left-sided tongue deviation. Patient had significant left-sided pain. X-ray of left hip and knee negative for any fractures or dislocations. Patient was able to pass swallow evaluation yesterday. Patient has an upset stomach today. Unknown last bowel movement. Will give suppository. Problem list: 1. Ischemic CVA likely multiple lacunar infarctsfollow up a repeat MRI 2. UTI/hematuriaday 3 antibiotics 3. History of BPHfollowed by urology Plan: * Follow up repeat MRI at 1430 today. * Follow up the urine/blood cultures: Negative after day 2 urine; day 1 blood * Follow-up babesiosis serology. Lyme titer was 0.17. * Continue PT/speech therapy. Awaiting final recommendations of acute rehab versus STR. * Continue to follow up recommendations of neurology, urology and cardiology * Continue medications as per urology: Finasteride, tamsulosin. * Continue aspirin and statin. * Patient seen by urologist today. We will continue the Hill. Consider voiding trial in the next day or 2. * Patient's blood pressure is elevated this morning. Initially held on patient' s blood pressure medications due to permissive hypertension. Will discontinue fluids and monitor vitals. In addition we will add low-dose lisinopril 5 mg even patient's history of CKD and recent stroke. * Patient on day 3 of ceftriaxone for UTI Code Status: Full Code DVT PPx: Heparin SC Diet: Passed swallow evaluation; will start diet Problem List: 1. UTI (urinary tract infection) 2. CVA (cerebral vascular accident) Pain Ratin Pain Location: Left hip pain Pain Goal: Pain 4 or less Pain Plan: As per pain pathway Tomorrow's Labs & Rationales: CBC BEP DVT/Prophylaxis: pharmacological Alejandra Villanueva 12/23/17 1148: Attending MD Review Statement Attending Statement Attending MD Statement: examined this patient, discuss w/resident/PA/UPHOLSTERER HELPER, agreed w/resident/PA/UPHOLSTERER HELPER, reviewed EMR data (avail), discussed with nursing, discussed with case mgmt Attending Assessment/Plan: Stroke - currently on neuro exam has significant left arm weakness and tongue deviation and facial droop. Neuro consult appreciated and MRI brain showed- "There are areas of restricted diffusion in the right frontoparietal regions, consistent with acute infarcts. There is no evidence of hemorrhagic transformation". Echo done shows- "Abnormal relaxation filling pattern of the left ventricle for age (stage 1 diastolic dysfunction). The ejection fraction is visually estimated at 65 %. No evidence of thrombus in the LV cavity." CTA shows severe stenosis of Rt vertebral artery origin. Neuro wants repeat MRI. will get that today. Hematuria- seen by urology. started on finasteride. cont on flomax. JABIER - resolved and back to baseline. UTI- cont on ceftriaxone. Left leg pain- knee and hip xray done shows no fractures. Pt still cont to have left leg pain but on questioning further says it is chronic and he has been having it for 6 months. will talk to his daughter to get more information. d/w pt the care plan. Will f/u on MRI results Abdominal xray done shows small amount of stool and pt did not have any bowel movement so will plan to give some stool softeners. HTN- increased bp. will start on low dose 5mg lisinopril today and dc iv fluids for now.
--- NOTE | 2017-12-23 07:43 | PN- Urology ---
Subjective Subjective: No acute distress. Complains of upset stomach. Less confused compared to yesterday Objective Vital Signs and I&Os Vital Signs Date Time Temp Pulse Resp B/P B/P Pulse O2 O2 Flow FiO2 Mean Ox Delivery Rate 12/23 0629 98.2 76 18 178/84 95 Room Air 12/22 2146 98.2 62 18 164/86 95 Room Air 12/22 1411 97.7 95 20 170/104 95 Room Air 12/22 0857 80 134/70 12/22 0800 97 Room Air Room Air Intake & Output 12/23 0800 12/23 0000 12/22 1600 12/22 0800 12/22 0000 12/21 1600 Intake Total 150 400 300 825 Output Total 1125 250 400 350 400 400 Balance -1125 -100 0 -50 -400 425 Intake, IV 150 400 300 800 Intake, Oral 0 25 Output, Urine 1125 250 400 350 400 400 Patient 153 lb 151 lb Weight Weight Bed scale Bed scale Measurement Method Abd: soft. No significant tenderness Genitalia: Jones in place. Urine is now clear Urine C&S: no growth to date although U/A is c/w UTI Laboratory Tests 12/23 0655 Chemistry Sodium Pending Potassium Pending Chloride Pending Carbon Dioxide Pending Anion Gap Pending BUN Pending Creatinine Pending BUN/Creatinine Ratio Pending Hematology CBC w Diff Pending WBC Pending RBC Pending Hgb Pending Hct Pending MCV Pending MCH Pending MCHC Pending RDW Pending Plt Count Pending MPV Pending Assessment/Plan Assessment/Plan Imp: 1. s/p CVA 2. UTI 3. Incomplete bladder emptying Plan: 1. Continue jones today. Will consider voiding trial in next day or 2 2. f/u final culture result and adjust abx accordingly 3. continue tamsulosin and finasteride
[2017-12-23 07:54] LABS: ABSOLUTE BASOPHIL COUNT 0 /CUMM (0.0-0.2); ABSOLUTE EOSINOPHIL COUNT 0.1 /CUMM (0.0-0.7); ABSOLUTE GRANULOCYTE CT 5.8 /CUMM (1.4-6.5); ABSOLUTE LYMPH COUNT 1.1 /CUMM (1.2-3.4); ABSOLUTE MONOCYTE COUNT 0.7 /CUMM (0.10-0.60); BASOPHIL % 0.5 % (0.0-2.0); EOSINOPHIL % 1.3 % (0-5); GRANULOCYTE % 74.8 % (42.2-75.2); HEMATOCRIT 40.9 % (42-52); MEAN CORPUSCULAR HGB 25.5 PG (27.0-31.0); MEAN CORPUSCULAR HGB CONC 32.4 G/DL (33.0-37.0); MEAN CORPUSCULAR VOLUME 78.6 FL (80.0-94.0); MEAN PLATELET VOLUME 8.9 FL (7.4-10.4); PLATELET COUNT 186 /CUMM (130-400); RBC DISTRIBUTION WIDTH 16.7 % (11.5-14.5); WHITE BLOOD CELL COUNT 7.7 /CUMM (4.8-10.8)
--- NOTE | 2017-12-23 09:04 | PN- Cardiology ---
Subjective Subjective: No evidence of arrhythmia on telemetry since admission. Neurologically unchanged since yesterday's evaluation. Remains with severe left hemineglect, and left upper extremity is densely plegic. He pulled his folley out this morning, without evidence of prolonged bleeding afterwards. Repeat MRI today. Objective Vital Signs and I&Os Vital Signs Date Time Temp Pulse Resp B/P B/P Pulse O2 O2 Flow FiO2 Mean Ox Delivery Rate 12/23 0629 98.2 76 18 178/84 95 Room Air 12/22 2146 98.2 62 18 164/86 95 Room Air 12/22 1411 97.7 95 20 170/104 95 Room Air Intake & Output 12/23 1600 12/23 0800 12/23 0000 12/22 1600 12/22 0800 12/22 0000 Intake Total 150 400 300 Output Total 400 1125 250 400 350 400 Balance -400 -1125 -100 0 -50 -400 Intake, IV 150 400 300 Intake, Oral 0 Output, Urine 400 1125 250 400 350 400 Patient 153 lb 151 lb Weight Weight Bed scale Bed scale Measurement Method Physical Exam: General Appearance: Alert, Oriented X3 Cardiovascular: Regular Rate, Normal S1, Normal S2, 3/6 systolic ejection murmur LUSB radiating to carotids bilaterally. Lungs: Clear to Auscultation, Normal Air Movement Abdomen: Normal Bowel Sounds, Soft, No Tenderness Neurological: Awake, alert, mild retraction to pain left arm, can move left leg against gravity. Extremities: good capillary refill bilaterally,No Cyanosis, No Edema Current Medications: Current Medications Sig/Alfredito Start time Last Medication Dose Route Stop Time Status Admin Acetaminophen 1,000 MG .STK-MED ONE 12/22 171 DC IV 12/22 171 Acetaminophen 1,000 MG Q8P PRN 12/21 0515 12/22 N/A 1 UNIT IV 171 Aspirin Buffered 81 MG DAILY 12/21 0912/22 PO 0856 Atorvastatin Calcium 80 MG 17012/20 2245 12/22 PO 171 Ceftriaxone Sodium 1,000 MG 12/21 AC 12/22 IV 205 Finasteride 5 MG DAILY 12/21 1113 AC 12/22 PO 0856 Heparin Sodium 5,000 UNIT Q8 12/20 2200 12/23 (Porcine) SC 0624 Hydromorphone HCl 2 MG .STK-MED ONE 12/22 1827 DC IV 12/22 1828 Hydromorphone HCl 0.4 MG ONCE ONE 12/22 1815 DC 12/22 IV 12/22 1816 1826 Hydromorphone HCl 0.6 MG ONCE ONE 12/22 0945 DC 12/22 IV 12/22 0946 0947 Lidocaine 1 PAT Q24H 12/20 2130 12/22 EXT 2054 Lisinopril 5 MG DAILY 12/23 0900 UNVr PO Melatonin 5 MG AT BEDTIME 12/21 0500 12/22 PO 2119 Morphine Sulfate 2 MG ONCE ONE 12/23 0300 DC 12/23 IV 12/23 0301 0312 Ondansetron HCl 4 MG .STK-MED ONE 12/22 2000 DC IM 12/22 2001 Ondansetron HCl 4 MG Q8P PRN 12/20 2145 12/22 IV 2004 Patient Medication 1 ED ONE ONE 12/22 1715 DC Teaching ED 12/22 1716 Sodium Chloride 1,000 ML Q20H 12/21 1900 DC 12/22 IV 12/23 1058 1844 Tamsulosin HCl 0.4 MG DAILY 12/21 0900 AC 12/22 PO 0857 Results Last 48 Hrs of Labs/Mics: Laboratory Tests 12/23/17 0655: Anion Gap 13, Estimated GFR 45 L, BUN/Creatinine Ratio 14.0, CBC w Diff NO MAN DIFF REQ, RBC 5.20, MCV 78.6 L, MCH 25.5 L, MCHC 32.4 L, RDW 16.7 H, MPV 8.9 , Gran % 74.8, Lymphocytes % 14.1 L, Monocytes % 9.3, Eosinophils % 1.3, Basophils % 0.5, Absolute Granulocytes 5.8, Absolute Lymphocytes 1.1 L, Absolute Monocytes 0.7 H, Absolute Eosinophils 0.1, Absolute Basophils 0 12/22/17 0640: Anion Gap 13, Estimated GFR 45 L, BUN/Creatinine Ratio 14.7, CBC w Diff NO MAN DIFF REQ, RBC 5.00, MCV 78.6 L, MCH 25.4 L, MCHC 32.3 L, RDW 16.3 H, MPV 8.6 , Gran % 81.1 H, Lymphocytes % 9.5 L, Monocytes % 8.5, Eosinophils % 0.5, Basophils % 0.4, Absolute Granulocytes 5.7, Absolute Lymphocytes 0.7 L, Absolute Monocytes 0.6, Absolute Eosinophils 0, Absolute Basophils 0, Babesia microti IgG Ab Pending, Babesia microti IgM Ab Pending, Babesia Interpretation Pending Assessment/Plan Assessment/Plan Acute right frontoparietal stroke with chronic microvascular disease and lacunar infarcts. No evidence of cardioembolic origin; his aortic valve is sclerotic but no vegetation was observed, and no evidence of atrial fibrillation to date. I do not believe a FLY would add any diagnostic value at this time. Continue telemetry? Yes
[2017-12-23 14:36] VITALS: BP 158/72
--- NOTE | 2017-12-23 15:59 | MRI REPORT ---
EXAMINATION: MR BRAIN WITHOUT CONTRAST CLINICAL INFORMATION: Left hemiplegia and facial droop. COMPARISON: Brain MRI December 21, 2017. TECHNIQUE: MRI of the brain was performed without contrast. A sagittal T1 and axial diffusion sequences were acquired. The study was prematurely terminated for patient comfort. The sequences are motion degraded. Diagnostic information was obtained. FINDINGS: Again seen are large areas of restricted diffusion within the right frontal and parietal lobes reflecting acute infarction within the MCA territory. Compared to the prior study of December 21, 2017 the areas of infarction appear more confluent with possible new areas of infarction superimposed on the existing ischemic areas. No gross midline shift is seen. IMPRESSION: - Prematurely terminated study with axial diffusion and sagittal T1-weighted sequences acquired. - Redemonstration of large areas of restricted diffusion within the right MCA territory involving the frontal and parietal lobes with increased confluence of areas of restricted diffusion with possible superimposed post acute ischemia. - No midline shift.
[2017-12-23 23:02] VITALS: BP 180/90
--- NOTE | 2017-12-24 01:36 | Event Note ---
Event Note Event Note: Situation: The patient has removed his jones and has traumatized his urethra. Per nurse report he had minimal bleeding afterwards. Background: 82 year old man w/ a PMHx of hypertension, hyperlipidemia, BPH (history unclear about treatment), CKD, CAD s/p stent(dates, and type of stent unknown) came to the hospital with a chief concern of multiple falls. Has Ischecmic CVA. Assesment: He has dementia and has been confused lately. Recommendation: No jones for now bladder scan per shift H&H check the patient for hematuria
[2017-12-24 06:51] VITALS: BP 162/80
--- NOTE | 2017-12-24 06:58 | PN- Housestaff ---
Sobeida Muñiz 12/24/17 0657: Subjective Follow-up For: CVA Left arm/hip pain Tele-Events Since Last Visit: Normal sinus rhythm, 97 ,0.08, 0.14 Subjective: Patient seen and examined at bedside this morning. Patient continues to have left lower extremity pain. Alert to person place and time this morning. As per nurse patient had pulled out his Jones catheter overnight with trauma to the urethra. Will keep Jones out for now and continues monitoring with bladder scans as per urology. Straight cath if bladder scan greater than 500 mL. Denies chest pain, palpitations, shortness of breath. No nausea or vomiting reported. Review of Systems Constitutional: Denies: see HPI. Objective Last 24 Hrs of Vital Signs/I&O Vital Signs Date Time Temp Pulse Resp B/P B/P Pulse O2 O2 Flow FiO2 Mean Ox Delivery Rate 12/24 0915 89 160/78 12/24 0915 89 160/78 12/24 0651 97.8 88 18 162/80 98 Room Air 12/23 2302 97.5 108 20 180/90 93 Room Air 12/23 2027 Room Air 12/23 1436 97.7 114 20 158/72 92 Room Air Intake & Output 12/24 1600 12/24 0800 12/24 0000 Intake Total Output Total 375 375 Balance -375 -375 Output, Urine 375 375 Patient 145 lb Weight Weight Bed scale Measurement Method Physical Exam General Appearance: Alert, Oriented X3, Cooperative, Mild Distress HEENT: Atraumatic, PERRLA, EOMI Cardiovascular: Regular Rate, Normal S1, Normal S2 Lungs: Clear to Auscultation, Normal Air Movement Abdomen: Normal Bowel Sounds, Soft, No Tenderness Neurological: Left upper extremity 1/5 strength; left lower extremity 2/5 strength Rigth upper/lower extremity 3/5 strength Reflexes hypoactive sensation decreased in left upper/lower extremity gait unassessed Extremities: No Clubbing, No Cyanosis, No Edema Current Medications: Current Medications Sig/Alfredito Start time Last Medication Dose Route Stop Time Status Admin Acetaminophen 1,000 MG Q8P PRN 12/21 0515 AC 12/22 N/A 1 UNIT IV 1719 Aspirin Buffered 81 MG DAILY 12/21 0900 AC 12/24 PO 0910 Atorvastatin Calcium 80 MG 1700 12/20 2245 AC 12/23 PO 1718 Bacitracin 1 CYRIL DAILY 12/23 0958 AC 12/24 TOP 0956 Ceftriaxone Sodium 1,000 MG 12/21 AC 12/23 IV 2000 Finasteride 5 MG DAILY 12/21 1113 AC 12/24 PO 0915 Heparin Sodium 5,000 UNIT Q8 12/20 2200 AC 12/24 (Porcine) SC 0605 Lidocaine 1 PAT Q24H 12/20 2130 AC 12/23 EXT 2006 Lisinopril 5 MG DAILY 12/23 0900 AC 12/24 PO 0915 Melatonin 5 MG AT BEDTIME 12/21 0500 AC 12/23 PO 1999 Ondansetron HCl 4 MG .STK-MED ONE 12/23 1212 DC IM 12/23 1213 Ondansetron HCl 4 MG Q8P PRN 12/20 2145 AC 12/23 IV 1213 Polyethylene Glycol 17 GM DAILY NEEDED PRN 12/23 1000 AC PO Senna/Docusate Sodium 2 TAB DAILY NEEDED PRN 12/23 1000 AC PO Tamsulosin HCl 0.4 MG DAILY 12/21 09 AC 12/24 PO 0915 Last 24 Hrs of Lab/Italo Results Last 24 Hrs of Labs/Mics: Laboratory Tests 12/24/17 0622: Anion Gap 12, Estimated GFR 39 L, BUN/Creatinine Ratio 12.9, CBC w Diff NO MAN DIFF REQ, RBC 5.41, MCV 79.0 L, MCH 25.4 L, MCHC 32.2 L, RDW 16.4 H, MPV 9.1 , Gran % 77.4 H, Lymphocytes % 11.4 L, Monocytes % 8.6, Eosinophils % 2.1, Basophils % 0.5, Absolute Granulocytes 7.4 H, Absolute Lymphocytes 1.1 L, Absolute Monocytes 0.8 H, Absolute Eosinophils 0.2, Absolute Basophils 0.1 Assessment/Plan Assessment: Patient is an 82-year-old male with past medical history of hypertension, hyperlipidemia, benign prostatic hyperplasia with previous urological procedures , CKD, coronary artery disease post-stent. Patient had presented to the [facility] ED for multiple falls at home as per his daughter. Patient was found to have a positive UA on admission. Currently patient is on day [address] was negative for hemorrhage but new areas of hypoattenuation consistent with lacunar infarcts. CT neck demonstrated severe stenosis of the right vertebral artery. Patient continues to show signs of acute left hemiplegia including left arm weakness left lower extremity weakness, left-sided facial droop, left-sided tongue deviation. Patient had significant left-sided pain. X-ray of left hip and knee negative for any fractures or dislocations. Repeat MRI restricted diffusion within the right frontal and parietal lobes reflecting acute infarction within the MCA territory. Overnight patient removed his Jones catheter independently. Seen by urologist morning. Advised to keep the Jones catheter out and have repeat bladder scan. Warrants straight catheterization if greater than 500 mL. Problem list: 1. 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 UTI/hematuriaday for antibiotics; removed Jones catheter independently 3. History of BPHfollowed by urology PLAN: * Jones catheter removed independently overnight. Seen by urologist. Keep Jones catheter out and continuous bladder scans. Scan greater than 500 mL warrants straight cath. * Repeat MRI demonstrating restricted diffusion within the right frontal and parietal lobes reflecting acute infarction within the MCA territory * Urine culture no growth after 2 days. Blood culture no growth after 1 day. * Day 4 of ceftriaxone for UTI. * Continue current medications. * Continue to follow-up with neurology, urology, cardiology recommendations. * As per PT, patient could benefit from acute rehab upon discharge CODE STATUS: Full code DVT prophylaxis: Heparin sc Problem List: 1. CVA (cerebral vascular accident) 2. UTI (urinary tract infection) Pain Ratin Pain Location: left lower extremity Pain Goal: Pain 4 or less Pain Plan: As per pain pathway Tomorrow's Labs & Rationales: CBC BEP DVT/Prophylaxis: mechanical, pharmacological Alejandra Villanueva 12/24/17 1410: Attending MD Review Statement Attending Statement Attending MD Statement: examined this patient, discuss w/resident/PA/FOOD SAFETY COORDINATOR, agreed w/resident/PA/FOOD SAFETY COORDINATOR, reviewed EMR data (avail), discussed with nursing, discussed with case mgmt Attending Assessment/Plan: Overnight the pts jones got pulled out. Urology saw the patient and advised to keep the jones out for now and recommending doing bladder scan and if >500cc then do straight cath and possible coude catheter placement. Stroke- cont to have left side weakness and left side hemineglect. Repeat MRI shows similar findings. Constipation- No bm last night . will cont on stool softeners.
--- NOTE | 2017-12-24 07:21 | PN- Urology ---
Subjective Subjective: Patient sleeping. He pulled out jones last night and had minimal urethral bleeding which resolved Objective Vital Signs and I&Os Vital Signs Date Time Temp Pulse Resp B/P B/P Pulse O2 O2 Flow FiO2 Mean Ox Delivery Rate 12/24 0651 97.8 88 18 162/80 98 Room Air 12/23 2302 97.5 108 20 180/90 93 Room Air 12/23 2027 Room Air 12/23 1436 97.7 114 20 158/72 92 Room Air 12/23 1040 72 160/90 Intake & Output 12/24 0800 12/24 0000 12/23 1600 12/23 0800 12/23 0000 12/22 1600 Intake Total 600 150 400 Output Total 375 852 112 3512 250 400 Balance -375 -375 -350 -1125 -100 0 Intake, IV 100 150 400 Intake, Oral 500 0 Number 1 Bowel Movements Output, Urine 375 203 555 0874 250 400 Patient 145 lb 153 lb 153 lb Weight Weight Bed scale Bed scale Measurement Method Abd: soft and non tender. Bladder not palpable Genitalia: normal male. No urethral bleeding urine culture neg x 2 Laboratory Tests 12/24 621 Chemistry Sodium Pending Potassium Pending Chloride Pending Carbon Dioxide Pending Anion Gap Pending BUN Pending Creatinine Pending BUN/Creatinine Ratio Pending Hematology CBC w Diff Pending WBC Pending RBC Pending Hgb Pending Hct Pending MCV Pending MCH Pending MCHC Pending RDW Pending Plt Count Pending MPV Pending Assessment/Plan Assessment/Plan Imp: 1. Incomplete bladder emptying 2. Hx of gross hematuria. Likely infection related although urine culture negative. Fairly recent hematuria w/u negative for urologic malignancy 3. Recent CVA 4. Pt pulled out jones Plan: 1. Leave jones out 2. Check pvr by bladder scan and if over 500 cc str cath. May need coude catheter
[2017-12-24 08:33] LABS: ABSOLUTE BASOPHIL COUNT 0.1 /CUMM (0.0-0.2); ABSOLUTE EOSINOPHIL COUNT 0.2 /CUMM (0.0-0.7); ABSOLUTE GRANULOCYTE CT 7.4 /CUMM (1.4-6.5); ABSOLUTE LYMPH COUNT 1.1 /CUMM (1.2-3.4); ABSOLUTE MONOCYTE COUNT 0.8 /CUMM (0.10-0.60); BASOPHIL % 0.5 % (0.0-2.0); EOSINOPHIL % 2.1 % (0-5); GRANULOCYTE % 77.4 % (42.2-75.2); HEMATOCRIT 42.7 % (42-52); MEAN CORPUSCULAR HGB 25.4 PG (27.0-31.0); MEAN CORPUSCULAR HGB CONC 32.2 G/DL (33.0-37.0); MEAN PLATELET VOLUME 9.1 FL (7.4-10.4); PLATELET COUNT 246 /CUMM (130-400); RBC DISTRIBUTION WIDTH 16.4 % (11.5-14.5); RED BLOOD CELL CT 5.41 /CUMM (4.70-6.10); WHITE BLOOD CELL COUNT 9.6 /CUMM (4.8-10.8)
[2017-12-24 14:44] VITALS: BP 168/74
[2017-12-24 21:41] LABS: BABESIA MICROTI IGG <1:64 (<1:64); BABESIA MICROTI IGM <1:20 (<1:20)
[2017-12-25 06:18] VITALS: BP 150/74
--- NOTE | 2017-12-25 07:04 | PN- Housestaff ---
Sobeida Muñiz 12/25/17 0703: Subjective Follow-up For: Left MCA Stroke Right vertebral artery stenosis UTI Tele-Events Since Last Visit: Normal sinus rhythm, 71, 0.08, 0.14 Subjective: Patient seen and examined at bedside this morning. Patient leaning to his right side in bed. He states that his stomach is upset but has passed a bowel movement. Otherwise patient is alert and oriented to person, place and time. He denies any chest pain, palpitations, shortness of breath. No episodes of nausea or vomiting. Patient currently on pure and thins. Physical physical therapy to follow and suggest acute rehab. Will give patient IV protonix/ omeprazole for GI discomfort. Review of Systems Constitutional: Denies: see HPI. Objective Last 24 Hrs of Vital Signs/I&O Vital Signs Date Time Temp Pulse Resp B/P B/P Pulse O2 O2 Flow FiO2 Mean Ox Delivery Rate 12/25 06 97.9 68 20 150/74 97 Room Air 12/24 2156 98.2 102 20 95 Room Air 12/24 1444 98.1 108 18 168/74 94 Room Air 12/24 0915 89 160/78 12/24 0915 89 160/78 Intake & Output 12/25 0800 12/25 0000 12/24 1600 Intake Total 610 Output Total 450 Balance 160 Intake, IV 10 Intake, Oral 600 Output, Urine 450 Patient 146 lb Weight Weight Bed scale Measurement Method Physical Exam General Appearance: Alert, Oriented X3, Cooperative, Mild Distress HEENT: Atraumatic, PERRLA, EOMI, Patient having difficulty tracking Neck: Supple, No JVD Cardiovascular: Regular Rate, Normal S1, Normal S2 Lungs: Clear to Auscultation, Normal Air Movement Abdomen: Normal Bowel Sounds, Soft, No Tenderness Neurological: 0/5 Left upper extremity; 2/5 left lower extremity 4/5 right upper and lower extremity Not able to move left arm Sensation decreased in left upper/ lower extremity Gait unassessed Extremities: No Clubbing, No Cyanosis, No Edema Vascular: Normal Pulses, Pulses Symmetrical Current Medications: Current Medications Sig/Alfredito Start time Last Medication Dose Route Stop Time Status Admin Acetaminophen 650 MG Q6PRN PRN 12/24 1715 AC 12/24 PO 1824 Acetaminophen 1,000 MG Q8P PRN 12/21 0515 AC 12/22 N/A 1 UNIT IV 1719 Aspirin Buffered 81 MG DAILY 12/21 09 AC 12/24 PO 0910 Atorvastatin Calcium 80 MG 1700 12/20 2245 AC 12/24 PO 1823 Bacitracin 1 CYRIL DAILY 12/23 0958 AC 12/24 TOP 0956 Ceftriaxone Sodium 1,000 MG 12/21 AC 12/24 IV 2016 Finasteride 5 MG DAILY 12/21 1113 AC 12/24 PO 0915 Heparin Sodium 5,000 UNIT Q8 12/20 2200 AC 12/25 (Porcine) SC 0541 Lidocaine 1 PAT Q24H 12/20 2130 AC 12/24 EXT 2020 Lisinopril 5 MG DAILY 12/23 09 AC 12/24 PO 0915 Melatonin 5 MG AT BEDTIME 12/21 0500 AC 12/24 PO 2016 Morphine Sulfate 2 MG ONCE ONE 12/25 0300 DC 12/25 IV 12/25 0301 0324 Ondansetron HCl 4 MG .STK-MED ONE 12/24 1400 DC IM 12/24 1401 Ondansetron HCl 4 MG Q8P PRN 12/20 2145 AC 12/24 IV 1404 Polyethylene Glycol 17 GM DAILY NEEDED PRN 12/23 1000 AC PO Senna/Docusate Sodium 2 TAB DAILY NEEDED PRN 12/23 1000 AC PO Tamsulosin HCl 0.4 MG DAILY 12/21 09 AC 12/24 PO 0915 Last 24 Hrs of Lab/Italo Results Last 24 Hrs of Labs/Mics: Laboratory Tests 12/25/17 0627: Sodium Pending, Potassium Pending, Chloride Pending, Carbon Dioxide Pending, Anion Gap Pending, BUN Pending, Creatinine Pending, BUN/Creatinine Ratio Pending , CBC w Diff Pending, WBC Pending, RBC Pending, Hgb Pending, Hct Pending, MCV Pending, MCH Pending, MCHC Pending, RDW Pending, Plt Count Pending, MPV Pending Assessment/Plan Assessment: Patient is an 82-year-old male with past medical history of hypertension, hyperlipidemia, benign prostatic hyperplasia with previous urological procedures , CKD, coronary artery disease post-stent. Patient had presented to the [facility] ED for multiple falls at home as per his daughter. Patient was found to have a positive UA on admission. Currently patient is on day [address] was negative for hemorrhage but new areas of hypoattenuation consistent with lacunar infarcts. CT neck demonstrated severe stenosis of the right vertebral artery. Patient continues to show signs of acute left hemiplegia including left arm weakness left lower extremity weakness, left-sided facial droop, left-sided tongue deviation. Patient has had significant left- sided pain. X-ray of left hip and knee negative for any fractures or dislocations. Repeat MRI restricted diffusion within the right frontal and parietal lobes reflecting acute infarction within the MCA territory. Patient complaining of abdominal pain today. Has passed a bowel movement in the past 24 hours. We will continue to monitor. Patient on day 5 ceftriaxone. Problem list: 1. 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 UTI/hematuriaday 5 ceftriaxone: Remove Hill catheter independently on 12/23 3. History of BPHfollowed by urology Plan: * Continue to follow up with urology, neurology, cardiology recommendations * As per PT, patient can benefit from acute rehab upon discharge * Hill catheter removed independently on 12/23/17. Seen by urologist and told to keep Hill catheter out and continuous bladder scans. Scan greater than 500 mL warrants a straight cath. * Day 5 of ceftriaxone for UTI. Patient has been afebrile with no leukocytosis. * Urine culture no growth after 2 days. Her culture no growth after 1 day. * Babesia and Lyme antibody titers negative * Continue patient's current medications. Lisinopril 5 mg added on 12/23/17 given patient's recent CVA * patient complained of GI discomfort; given IV protonix X1 and oral omeprazole 40mg daily for now; will continue to monitor CODE STATUS: Full code DVT prophylaxis: Heparin SC Diet: Regular diet with pure/thin liquids Problem List: 1. UTI (urinary tract infection) 2. CVA (cerebral vascular accident) Pain Ratin Pain Location: left lower extremity Pain Goal: Pain 4 or less Pain Plan: as per pain pathway Tomorrow's Labs & Rationales: cbc Alejandra Castillo 12/25/17 1223: Attending MD Review Statement Attending Statement Attending MD Statement: examined this patient, discuss w/resident/PA/TRAWL NET MAKER, agreed w/resident/PA/TRAWL NET MAKER, reviewed EMR data (avail), discussed with nursing, discussed with case mgmt Attending Assessment/Plan: Stroke- cont to have left side weakness and left side hemineglect. Repeat MRI shows similar findings. Plan is to dc him to Rehab per PT recommendations. Case management working on placement. UTI- will dc ceftriaxone after todays dose. will finish 5 days of abx. Dysphagia- cont current modified diet.
--- NOTE | 2017-12-25 07:32 | PN- Urology ---
Subjective Subjective: Pt sleeping Objective Vital Signs and I&Os Vital Signs Date Time Temp Pulse Resp B/P B/P Pulse O2 O2 Flow FiO2 Mean Ox Delivery Rate 12/25 0618 97.9 68 20 150/74 97 Room Air 12/24 2156 98.2 102 20 95 Room Air 12/24 1444 98.1 108 18 168/74 94 Room Air 12/24 0915 89 160/78 12/24 0915 89 160/78 Intake & Output 12/25 0800 12/25 0000 12/24 1600 12/24 0800 12/24 0000 12/23 1600 Intake Total 610 600 Output Total 450 375 375 950 Balance 160 -375 -375 -350 Intake, IV 10 100 Intake, Oral 600 500 Number 1 Bowel Movements Output, Urine 450 375 375 950 Patient 146 lb 145 lb 153 lb Weight Weight Bed scale Bed scale Measurement Method Abd: soft and non tender Pt straight cathed yesterday for pvr of 450 cc urine C&S negative Laboratory Tests 12/25 626 Chemistry Sodium Pending Potassium Pending Chloride Pending Carbon Dioxide Pending Anion Gap Pending BUN Pending Creatinine Pending BUN/Creatinine Ratio Pending Hematology CBC w Diff Pending WBC Pending RBC Pending Hgb Pending Hct Pending MCV Pending MCH Pending MCHC Pending RDW Pending Plt Count Pending MPV Pending Assessment/Plan Assessment/Plan Imp: 1. Incomplete bladder emptying 2. CVA Plan: 1. continue to check pvr by bladder scan q shift and str cath if more than 500 cc 2. continue tamsulosin and finasteride 3. Will likely need str cath at rehab
[2017-12-25 07:52] LABS: ABSOLUTE BASOPHIL COUNT 0 /CUMM (0.0-0.2); ABSOLUTE EOSINOPHIL COUNT 0.3 /CUMM (0.0-0.7); ABSOLUTE GRANULOCYTE CT 6.8 /CUMM (1.4-6.5); ABSOLUTE LYMPH COUNT 1.5 /CUMM (1.2-3.4); BASOPHIL % 0.4 % (0.0-2.0); GRANULOCYTE % 70.2 % (42.2-75.2); HEMATOCRIT 45.7 % (42-52); MEAN CORPUSCULAR HGB 25.7 PG (27.0-31.0); MEAN CORPUSCULAR HGB CONC 32.4 G/DL (33.0-37.0); MEAN CORPUSCULAR VOLUME 79.2 FL (80.0-94.0); PLATELET COUNT 249 /CUMM (130-400); RBC DISTRIBUTION WIDTH 16.5 % (11.5-14.5); RED BLOOD CELL CT 5.77 /CUMM (4.70-6.10); WHITE BLOOD CELL COUNT 9.6 /CUMM (4.8-10.8)
[2017-12-25] MEDS ORDERED: OMEPRAZOLE20 M2 PO (12:31)
[2017-12-25] MEDS ORDERED: LISINOPRIL5 M1 PO (12:31)
[2017-12-25 14:15] VITALS: BP 160/88
[2017-12-25 22:24] VITALS: BP 180/84
[2017-12-26 06:34] VITALS: BP 146/90
--- NOTE | 2017-12-26 08:25 | PN- Housestaff ---
Sobeida Muñiz 12/26/17 0825: Subjective Follow-up For: CVA Complaints: no complaints, No pain Tele-Events Since Last Visit: NSR with rate at 89bpm ST depression lead II at midnight, resolved spontaneously Subjective: Pt was seen and examined at bedside. He reports feeling much improved this morning. He denies stomach pains and hip discomfort, both of which he complained of previously. He is tolerating a regular diet and short PT sessions. He is requiring straight cath for urination d/t inability void. Pt denies headache, chest pain, SOB, leg pain. Review of Systems Constitutional: Denies: see HPI. Objective Last 24 Hrs of Vital Signs/I&O Vital Signs Date Time Temp Pulse Resp B/P B/P Pulse O2 O2 Flow FiO2 Mean Ox Delivery Rate 12/26 0819 90 146/90 12/26 0818 90 146/90 12/26 0634 97.8 90 18 146/90 95 Room Air 12/25 2224 97.4 61 18 180/84 93 Room Air 12/25 1415 97.1 91 20 160/88 95 Room Air Intake & Output 12/26 1600 12/26 0800 12/26 0000 Intake Total 200 Output Total 225 350 Balance -25 -350 Intake, Oral 200 Output, Urine 225 350 Patient 145 lb Weight Weight Bed scale Measurement Method Physical Exam General Appearance: Alert, Oriented X3, Cooperative, No Acute Distress Skin: No Rashes Skin Temp/Moisture Exam: Warm/Dry Sepsis Skin Exam (color): Normal for Ethnicity HEENT: Atraumatic, PERRLA, EOMI, Mucous Membr. moist/pink Neck: Supple, No JVD Cardiovascular: Regular Rate, Normal S1, Normal S2, No Murmurs Lungs: Clear to Auscultation, Normal Air Movement Abdomen: Normal Bowel Sounds, Soft, slight epigastric tenderness Neurological: R upper and lower extremity strength 5/5, L upper extremity strength 0/5, L lower extremity strength 1/5, sensation intact on R side, sensation diminished on the L side Extremities: Normal Pulses, No Tenderness/Swelling Current Medications: Current Medications Sig/Alfredito Start time Last Medication Dose Route Stop Time Status Admin Acetaminophen 650 MG Q6PRN PRN 12/24 1715 AC 12/25 PO 1039 Acetaminophen 1,000 MG Q8P PRN 12/21 0515 AC 07/17 N/A 1 UNIT IV 1719 Aspirin Buffered 81 MG DAILY 12/21 09 AC 12/26 PO 0818 Atorvastatin Calcium 80 MG 1700 12/20 2245 AC 12/25 PO 1646 Bacitracin 1 CYRIL DAILY 12/23 0958 AC 12/25 TOP 1200 Ceftriaxone Sodium 1,000 MG 12/21 DC / IV 12/26 2300 2015 Finasteride 5 MG DAILY 12/21 1113 AC 12/26 PO 0817 Heparin Sodium 5,000 UNIT Q8 12/20 2200 AC 12/26 (Porcine) SC 0705 Lidocaine 1 PAT Q24H 12/20 2130 AC 12/25 EXT 1744 Lisinopril 5 MG DAILY 12/23 0900 AC 12/26 PO 0818 Melatonin 5 MG AT BEDTIME 12/21 0500 AC 12/25 PO 2255 Morphine Sulfate 2 MG Q6P PRN 12/25 1730 AC 12/26 IV 0125 Morphine Sulfate 4 MG .STK-MED ONE 12/25 1306 DC IV 12/25 1307 Omeprazole 40 MG DAILY AC 12/26 07 AC 12/26 PO 0818 Ondansetron HCl 4 MG .STK-MED ONE 12/25 1348 DC IM 12/25 1349 Ondansetron HCl 4 MG Q8P PRN 12/20 2145 AC 12/25 IV 1349 Polyethylene Glycol 17 GM DAILY NEEDED PRN 12/23 1000 AC 12/26 PO 0819 Senna/Docusate Sodium 2 TAB DAILY NEEDED PRN 12/23 1000 AC 12/26 PO 0819 Tamsulosin HCl 0.4 MG DAILY 12/21 09 AC 12/26 PO 0819 Assessment/Plan Assessment: [id number] with past medical hx of HTN, HLD, BPH, urological procedures, CKD, and CAD post stent was admitted to the hospital 6 days ago with confusion and significant L sided weakness. UA was positive on admission and the patient has completed 5/5 days of ceftriaxone. Head CT was neg for hemorrhage but indicated new areas of hypoattenuation which indicated lacunar infarts. Neck CT showed severe R vertebral artery stenosis. The patient continues to show signs of L sided hemiplegia, with KYLE and LL extremity weakness, L sided facial droop, and tongue deviation to the L side. Pt denies L sided pain today. A repeat MRI demonstrated a L MCA territory hypoattenuation. Problems/Plan 1. CVA * Pt presented to hospital 6 days ago and was found to have L MCA infarct confirmed by MRI. He continues to improve with PT, though needs maximal assistance to sit at EOB. He is tolerating a regular diet, though complained of stomach pain which has now resolved with omeprazole. He has also complained of L hip pain which has also resolved today. * Continue omeprazole for epigastric discomfort. Continue PT. * Plan for discharge to [facility]. [place]. 2. UTI * Resolved on 5/5 days ceftriaxone. 3. BPH * Pt self removed jones catheter 2 days ago. Currently unable to void independently. * Continue following straight cath protocol from nephrology and with tamsulosin and finasteride. 4. HTN and HLD * Stable. 5. CKD * Stable. BUN and creatine remains at patients baseline. Follow with [facility]P tomorrow. 6. CAD post stent * Stable. Diet: Regular DVT Prophy: ALPS Code status: Full code Problem List: 1. CVA (cerebral vascular accident) Pain Ratin Pain Location: None Pain Goal: Remain pain free Pain Plan: Remain pain free Tomorrow's Labs & Rationales: CBC, BEP DVT/Prophylaxis: ginny Quintero MD,Nanda 12/26/17 0948: Attending MD Review Statement Attending Statement Attending MD Statement: examined this patient, discuss w/resident/PA/PHOTO GRAPHICS LIBRARIAN, agreed w/resident/PA/PHOTO GRAPHICS LIBRARIAN, reviewed EMR data (avail), discussed with nursing, reviewed images Attending Assessment/Plan: 82-year-old male past medical history of hypertension hyperlipidemia and BPH who is here with an acute hemispheric infarct. PT is actively working with him and we are awaiting a rehab bed. He has CKD with baseline creatinine in the 1.5-1.6 range. He completed antibiotics for a UTI with a negative urine culture and he is on a straight cath protocol with tamsulosin and finasteride as per urology.
[2017-12-26 08:28] LABS: ABSOLUTE BASOPHIL COUNT 0 /CUMM (0.0-0.2); ABSOLUTE EOSINOPHIL COUNT 0.3 /CUMM (0.0-0.7); ABSOLUTE GRANULOCYTE CT 7.3 /CUMM (1.4-6.5); ABSOLUTE MONOCYTE COUNT 0.8 /CUMM (0.10-0.60); BASOPHIL % 0.5 % (0.0-2.0); EOSINOPHIL % 3.6 % (0-5); GRANULOCYTE % 76.4 % (42.2-75.2); MEAN CORPUSCULAR HGB 25.5 PG (27.0-31.0); MEAN CORPUSCULAR VOLUME 79.9 FL (80.0-94.0); MEAN PLATELET VOLUME 9.1 FL (7.4-10.4); PLATELET COUNT 243 /CUMM (130-400); RBC DISTRIBUTION WIDTH 16.3 % (11.5-14.5); RED BLOOD CELL CT 5.56 /CUMM (4.70-6.10); WHITE BLOOD CELL COUNT 9.6 /CUMM (4.8-10.8)
[2017-12-26 08:44] LABS: HEMATOCRIT 44.4 % (42-52)
[2017-12-26 14:16] VITALS: BP 163/74
[2017-12-26 22:03] VITALS: BP 148/84
[2017-12-27 06:32] VITALS: BP 176/76
--- NOTE | 2017-12-27 08:44 | PN- Housestaff ---
Nitesh Vasquez 12/27/17 0843: Subjective Follow-up For: CVA Subjective: Patient seen lying in the bed, complains of abdominal pain 5/10 that he describes as the need to make a bowel movement. Patient denies headache, chest pain, dyspnea, leg pain. Is eager to get out of bed, unaware of his left-sided weakness, and must be straight-cathed to void bladder. Patient was placed on the bed parham per nursing. Review of Systems Constitutional: Denies: chills, fever. Cardiovascular: Denies: chest pain, palpitations. Respiratory: Denies: cough, short of breath. Gastrointestinal: Reports: abdominal pain. Denies: nausea, vomiting. Objective Last 24 Hrs of Vital Signs/I&O Vital Signs Date Time Temp Pulse Resp B/P B/P Pulse O2 O2 Flow FiO2 Mean Ox Delivery Rate 12/27 075 55 158/76 12/27 0752 55 158/76 12/27 0632 98.3 72 18 176/76 95 12/26 2203 97.7 66 16 148/84 92 12/26 1416 96.9 67 17 163/74 94 Room Air Intake & Output 12/27 1600 12/27 0800 12/27 0000 Intake Total 110.5 72.5 Output Total 515 Balance -404.5 72.5 Intake, IV 10.5 22.5 Intake, Oral 100 50 Output, Urine 515 Patient 65.402 kg Weight Physical Exam General Appearance: Alert, Oriented X3, Cooperative, No Acute Distress HEENT: Atraumatic Cardiovascular: Regular Rate, Normal S1, Normal S2, Harsh systolic murmur appreciated Lungs: Clear to Auscultation Abdomen: Soft, No Tenderness Neurological: Left sided weakness & neglect Current Medications: Current Medications Sig/Alfredito Start time Last Medication Dose Route Stop Time Status Admin Acetaminophen 650 MG Q6PRN PRN 12/24 1715 AC 12/25 PO 1039 Acetaminophen 1,000 MG Q8P PRN 12/21 0515 12/22 N/A 1 UNIT IV 1719 Aspirin Buffered 81 MG DAILY 12/21 0900 AC 12/27 PO 0752 Atorvastatin Calcium 80 MG 1700 12/20 2245 AC 12/26 PO 1555 Bacitracin 1 CYRIL DAILY 12/23 0958 12/27 TOP 0751 Finasteride 5 MG DAILY 12/21 1113 AC 12/27 PO 0753 Heparin Sodium 5,000 UNIT Q8 12/20 2200 AC 12/27 (Porcine) SC 0536 Lidocaine 1 PAT Q24H 12/20 2130 AC 12/25 EXT 1744 Lisinopril 5 MG DAILY 12/23 0900 AC 12/27 PO 0753 Melatonin 5 MG AT BEDTIME 12/21 0500 AC 12/26 PO 2027 Morphine Sulfate 2 MG Q6P PRN 12/25 1730 AC 12/27 IV 0535 Omeprazole 40 MG DAILY AC 12/26 0700 AC 12/27 PO 0535 Ondansetron HCl 4 MG .STK-MED ONE 12/26 2020 DC IM 12/26 2021 Ondansetron HCl 4 MG Q8P PRN 12/20 2145 AC 12/26 IV 2026 Polyethylene Glycol 17 GM DAILY NEEDED PRN 12/23 1000 AC 12/26 PO 08 Senna/Docusate Sodium 2 TAB DAILY NEEDED PRN 12/23 1000 AC 12/26 PO 0819 Tamsulosin HCl 0.4 MG DAILY 12/21 09 AC 12/27 PO 075 Last 24 Hrs of Lab/Italo Results Last 24 Hrs of Labs/Mics: Laboratory Tests 12/27/1715: Anion Gap 11, Estimated GFR 39 L, BUN/Creatinine Ratio 16.5 Assessment/Plan Assessment: 82YOM with past medical hx of HTN, HLD, BPH, urological procedures, CKD, and CAD post stent. The patient continues to show signs of L sided hemiplegia, with KYLE and LL extremity weakness, L sided facial droop, and tongue deviation to the L side. 1. 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 He continues to improve with PT, though needs maximal assistance to sit at EOB. * Continue omeprazole for epigastric discomfort. Continue PT. * Plan for discharge to [facility]. [place]. 2. UTI * Resolved on 5/5 days ceftriaxone. 3. BPH * Pt self removed jones catheter 2 days ago. Currently unable to void independently. * Continue following straight cath protocol from nephrology and with tamsulosin and finasteride. 4. HTN and HLD * Stable. 5. CKD * Stable. BUN and creatine remains at patients baseline. Follow with [facility] tomorrow. 6. CAD post stent * Stable. Problem List: 1. CVA (cerebral vascular accident) Pain Ratin Pain Location: abdomen Pain Goal: Pain 4 or less Pain Plan: per pathway Tomorrow's Labs & Rationales: none Nanda Quintero MD 12/27/17 0857: Attending MD Review Statement Attending Statement Attending MD Statement: examined this patient, discuss w/resident/PA/VIDEO CLERK, agreed w/resident/PA/VIDEO CLERK, reviewed EMR data (avail), discussed with nursing, reviewed images Attending Assessment/Plan: Overall patient is doing okay. We are still awaiting a rehab bed. Patient has underlying hypertension, hyperlipidemia, CKD and BPH. He is here with an acute hemispheric infarct and PT is actively working with him.
[2017-12-27 15:21] VITALS: BP 150/70
[2017-12-27 22:06] VITALS: BP 150/92
[2017-12-28 00:23] VITALS: BP 170/62
[2017-12-28 06:10] VITALS: BP 130/68
--- NOTE | 2017-12-28 07:41 | PN- Urology ---
Subjective Subjective: No acute distress Not voiding spontaneously. No intermittent cath Objective Vital Signs and I&Os Vital Signs Date Time Temp Pulse Resp B/P B/P Pulse O2 O2 Flow FiO2 Mean Ox Delivery Rate 12/28 0610 97.5 87 20 130/68 94 12/28 0023 97.4 62 16 170/62 95 12/27 2206 97.3 84 16 150/92 93 12/27 1600 Room Air 12/27 1521 98.0 72 16 150/70 96 Room Air 12/27 0800 Room Air 12/27 0753 55 158/76 12/27 0752 55 158/76 Intake & Output 12/28 0800 12/28 0000 12/27 1600 12/27 0800 12/27 0000 12/26 1600 Intake Total 120 510 110.5 72.5 600 Output Total 515 550 Balance 120 510 -404.5 72.5 50 Intake, IV 10 10.5 22.5 Intake, Oral 120 500 100 50 600 Output, Urine 515 550 Patient 145 lb 144 lb Weight Abd: soft and non tender Assessment/Plan Assessment/Plan Imp: 1. urinary retention, chronic. Baseline pvr is around 500 cc 2. Recent CVA Plan: 1. continue tamsulosin and finasteride 2. continue intermittent cath, which he will need at rehab facility
--- NOTE | 2017-12-28 08:16 | PN- Housestaff ---
Desmond Gaona 12/28/17 0815: Subjective Follow-up For: L MCA CVA, Lacunar Infarct Subjective: Patient was an overnight transfer from telemetry to general medicine floor. Patient seen and examined at bedside. Pt states that he has some mild stomach pain. Patient denied any other complaints. Denies fevers/chills/night sweats/ chest pain/abdominal pain/urinary symptoms/lower extremity edema Review of Systems Constitutional: Reports: see HPI. Objective Last 24 Hrs of Vital Signs/I&O Vital Signs Date Time Temp Pulse Resp B/P B/P Pulse O2 O2 Flow FiO2 Mean Ox Delivery Rate 12/28 1122 Room Air 12/28 0937 130/68 12/28 0937 130/68 12/28 0849 Room Air 12/28 0840 Room Air 12/28 0610 97.5 87 20 130/68 94 12/28 0023 97.4 62 16 170/62 95 12/27 2206 97.3 84 16 150/92 93 12/27 1600 Room Air 12/27 1521 98.0 72 16 150/70 96 Room Air Intake & Output 12/28 1600 12/28 0800 12/28 0000 Intake Total 50 120 Output Total 550 Balance -500 120 Intake, Oral 50 120 Output, Urine 550 Patient 145 lb Weight Physical Exam General Appearance: Alert, Oriented X3, Cooperative, No Acute Distress Skin: No Rashes Skin Temp/Moisture Exam: Warm/Dry HEENT: Atraumatic, L facial droop Cardiovascular: Regular Rate, Normal S1, Normal S2 Lungs: Clear to Auscultation, Normal Air Movement Abdomen: Soft, No Tenderness Neurological: L sided hemineglect, L sided hemianopsia, L sided weakness 1/5 Upper and Lower extremities Extremities: No Edema Vascular: Normal Pulses Current Medications: Current Medications Sig/Alfredito Start time Last Medication Dose Route Stop Time Status Admin Acetaminophen 650 MG Q6PRN PRN 12/24 1715 AC 12/28 PO 0624 Acetaminophen 1,000 MG Q8P PRN 12/21 0515 AC 12/22 N/A 1 UNIT IV 1719 Aspirin Buffered 81 MG DAILY 12/21 0900 AC 12/28 PO 0937 Atorvastatin Calcium 80 MG 1700 12/20 2245 AC 12/27 PO 1651 Bacitracin 1 CYRIL DAILY 12/23 0958 AC 12/28 TOP 0937 Finasteride 5 MG DAILY 12/21 1113 AC 12/28 PO 0937 Heparin Sodium 5,000 UNIT Q8 12/20 2200 AC 12/28 (Porcine) SC 0624 Lidocaine 1 PAT Q24H 12/20 2130 AC 12/27 EXT 1657 Lisinopril 5 MG DAILY 12/23 0900 AC 12/28 PO 0937 Melatonin 5 MG AT BEDTIME 12/21 0500 AC 12/27 PO 2047 Morphine Sulfate 2 MG Q6P PRN 12/25 1730 AC 12/27 IV 2254 Omeprazole 40 MG DAILY AC 12/26 0700 AC 12/28 PO 0623 Ondansetron HCl 4 MG Q8P PRN 12/20 2145 AC 12/26 IV 2027 Polyethylene Glycol 17 GM DAILY NEEDED PRN 12/23 1000 AC 12/27 PO 171 Senna/Docusate Sodium 2 TAB DAILY NEEDED PRN 12/23 1000 AC 12/27 PO 1719 Tamsulosin HCl 0.4 MG DAILY 12/21 09 AC 12/28 PO 0937 Assessment/Plan Assessment: 82YOM with past medical hx of HTN, HLD, BPH, urological procedures, CKD, and CAD post stent. The patient continues to show signs of L sided hemiplegia, with KYLE and LL extremity weakness, L sided facial droop, and tongue deviation to the L side. 1. CVAstable * Pt was found to have L MCA infarct confirmed by MRI. He continues to improve with PT, though needs maximal assistance to sit at EOB. * Continue omeprazole for epigastric discomfort. Continue PT. * Plan for discharge to Subacute per PT * Per neurology, will be discharged on aspirin and statin * Continues to work with PT and OT, however will likely benefit much more in a rehab setting 2. UTIresolved * Resolved on 5/5 days ceftriaxone. 3. BPHstable * Pt self removed jones catheter 2 days ago. Currently unable to void independently. * Continue following straight cath protocol from urology and with tamsulosin and finasteride. 4. HTN and HLD * Stable. 5. CKD * Stable. BUN and creatine remains at patients baseline. 6. CAD post stent * Stable. DVT prophylaxis Full code IV access Tolerating regular diet Dispositionto subacute rehab per PT, potentially today pending bed acceptance Problem List: 1. CVA (cerebral vascular accident) 2. UTI (urinary tract infection) Pain Ratin Pain Location: na Pain Goal: Pain 4 or less Pain Plan: per pathway Tomorrow's Labs & Rationales: ericka DietrichLety berrios 12/28/17 1057: Attending MD Review Statement Attending Statement Attending MD Statement: examined this patient, discuss w/resident/PA/KEYBOARD INSTRUMENT REPAIRER, agreed w/resident/PA/KEYBOARD INSTRUMENT REPAIRER, discussed with family, reviewed EMR data (avail), discussed with nursing, discussed with case mgmt, reviewed images, amended to note Attending Assessment/Plan: Overall patient stable. Awaiting a rehab bed. Patient has underlying hypertension, hyperlipidemia, CKD and BPH. He is here with an acute hemispheric infarct. Neurology cosulted and discharge on aspirin and statin. Medically stable for dischareg to rehab facility.
[2017-12-28 14:41] VITALS: BP 130/68
[2017-12-28 14:45] VITALS: BP 140/88
== END 2017-12-28 17:00 | DRG 64 ==
LOC: ERH 13:47 → ERHI 19:54 → 1NO 19:54 → ENRESERV 20:16 → ENTRNSPT 20:59 → 1NO 21:12 → CMPTRNSPT 21:32 → 1NO 12-21 07:36 → 2NA 12-27 23:09 → ENPENDDIS 12-28 14:56 → 2NA 12-28 17:00
PROVIDERS: Emergency Medicine; Internal Medicine; Internal Medicine Endocrinology, Diabetes & Metabolism; Physical Medicine & Rehabilitation Pain Medicine
DX: I63.9 Cerebral infarction, unspecified (principal); G93.40 Encephalopathy, unspecified; N39.0 Urinary tract infection, site not specified; N17.9 Acute kidney failure, unspecified; I69.354 Hemiplegia and hemiparesis following cerebral infarction affecting left non-dominant side; I65.01 Occlusion and stenosis of right vertebral artery; R31.0 Gross hematuria; N40.1 Benign prostatic hyperplasia with lower urinary tract symptoms; R33.8 Other retention of urine; I69.392 Facial weakness following cerebral infarction; Z91.81 History of falling; E78.5 Hyperlipidemia, unspecified; Z90.79 Acquired absence of other genital organ(s); I25.10 Atherosclerotic heart disease of native coronary artery without angina pectoris; Z98.61 Coronary angioplasty status; K21.9 Gastro-esophageal reflux disease without esophagitis; W18.30XA Fall on same level, unspecified, initial encounter; Y92.009 Unspecified place in unspecified non-institutional (private) residence as the place of occurrence of the external cause; I12.9 Hypertensive chronic kidney disease with stage 1 through stage 4 chronic kidney disease, or unspecified chronic kidney disease; N18.3 Chronic kidney disease, stage 3 (moderate)
CPT/HCPCS: 1NSP; 2NASP; 70551; 86618; 36415; 36592; 73060-LT; 73090-LT; 73502-LT; 73562-LT; 74018; 76775; 81001; 82436; 86753; 87040; 87086; 93005; 93010; 93306; 96105-GN; 97110-GO; 97112-GO; 97161-GP; 97165-GO; 97530-GO; J0131; J0696; J1170; J1644; J2270; J2405; J3490